=== PATIENT | male | born 1965 | race Two or more races ===

== ENCOUNTER 2018-08-30 09:02 | Inpatient (IN) | payer SELFPAY ==
[2018-08-30] MEDS ORDERED: Sodium Chloride 0.9% 1,000 ML IV ONE (09:40)
--- NOTE | 2018-08-30 09:46 | PCM.HP ---
H&P History of Present Illness - General Date of Service: 08/30/18 Admit Problem/Dx: Admission Diagnosis/Problem Admission Diagnosis/Problem UTI, Urinary tract infectious disease - History of Present Illness Initial Comments - Free Text/Narative: The patient is a 53 year old male who was a direct admit from his PCP, Khalida Turner. He reports 2 week history of flu like symptoms. He reports it started with URI symptoms such as cough, nasal congestion, and shortness of breath. That resolved and then he developed diarrhea. Last episode of diarrhea was 2 days ago. He reports fever intermittently, last known fever was Wednesday. The reports it was 102 F. He presented to his PCP, still not feeling great, where she did labs that showed a elevated white count of 15.5, elevated BUN/Cr of 35/2.2, elevated glucose of 355, bicarb of 22, sodium of 126, potassium of 4.8 and a UA with evidence of infection with positive leuk est, 4+ bacteria, and 20-30 WBC. Patient has a history of DMII, depression, and hyperlipidemia. He is only on oral agents for his diabetes and reports his H1ac was 12% about a month ago. He had been off his medications for about a month prior to that. Patient denies any history of CHF, kidney failure, UTI, asthma, or COPD. Currently the denies any fever/chills, chest pain, abdominal pain, nausea,vomiting, diarrhea, dsyuria, increased urgency or frequency. He does report feeling SOB. - Related Data Allergies/Adverse Reactions: Allergies Allergy/AdvReac Type Severity Reaction Status Date / Time No Known Allergies Allergy Verified 10/19/13 12:37 Home Medications: Home Meds Celecoxib 2 tab PO DAILY 09/03/15 [History] Citalopram Hydrobromide [Celexa] 60 mg PO DAILY 09/03/15 [History] Fenofibrate Nanocrystallized [Fenofibrate] 145 mg PO DAILY 09/03/15 [History] Insulin Aspart [Novolog Flexpen] 1 injection SUBCUT ASDIRECTED 09/03/15 [History ] Insulin Glarg,Human.Rec.Analog [LantUS Solostar] 50 units SUBCUT BID 09/03/15 [ History] Insulin Lispro [Humalog Kwikpen U-100] 20 - 25 units SUBCUT ASDIRECTED 09/03/15 [History] Krill/Om-3/DHA/EPA/Phospho/Ast [Krill Oil 1,000 mg Softgel] 1 tab PO DAILY 09/02 [History] Magnesium Oxide [Magnesium] 400 mg PO DAILY 09/03/15 [History] Multivitamin [Multivitamins] 1 tab PO DAILY 09/03/15 [History] atorvaSTATin Calcium [Atorvastatin Calcium] 80 mg PO BEDTIME 09/03/15 [History] buPROPion HCl [Wellbutrin SR] 300 mg PO DAILY 09/03/15 [History] sitaGLIPtin Phos/Metformin HCl [Janumet 50-500 MG] 2 tab PO DAILY 09/03/15 [ History] Cholecalciferol (Vitamin D3) [Vitamin D] 50,000 unit PO WEEKLY 08/30/18 [History ] Exenatide Microspheres [Bydureon Pen] 2 mg SQ WEEKLY 08/30/18 [History] Lisinopril 5 mg PO DAILY 08/30/18 [History] Rosuvastatin [Crestor] 20 mg PO DAILY 08/30/18 [History] Sertraline HCl [Zoloft] 100 mg PO BID 08/30/18 [History] Past Medical History HEENT History: Reports: None Cardiovascular History: Reports: High Cholesterol Respiratory History: Reports: Sleep Apnea Other Respiratory History: uses CPAP Gastrointestinal History: Reports: None Genitourinary History: Reports: None Neurological History: Reports: None Psychiatric History: Reports: Anxiety, Depression Endocrine/Metabolic History: Reports: Diabetes, Type II, Obesity/BMI 30+ Hematologic History: Reports: None Immunologic History: Reports: None Oncologic (Cancer) History: Reports: None Dermatologic History: Reports: None - Past Surgical History GI Surgical History: Reports: Bariatric Procedure Musculoskeletal Surgical History: Reports: Arthroscopic Knee Social & Family History - Tobacco Use Smoking Status *Q: Former Smoker - Alcohol Use Alcohol Use History: No H&P Review of Systems - Review of Systems: Review Of Systems: See Below General: Reports: No Symptoms HEENT: Reports: No Symptoms Pulmonary: Reports: Shortness of Breath. Denies: Cough Cardiovascular: Reports: No Symptoms Gastrointestinal: Reports: No Symptoms Genitourinary: Reports: No Symptoms Musculoskeletal: Reports: No Symptoms Skin: Reports: No Symptoms Psychiatric: Reports: No Symptoms Neurological: Reports: No Symptoms Hematologic/Lymphatic: Reports: No Symptoms Immunologic: Reports: No Symptoms Exam - Exam Exam: See Below - Vital Signs Vital Signs: Last Vital Signs Temp 96.7 F 08/30/18 09:14 Pulse 97 08/30/18 09:14 Resp 20 08/30/18 09:14 BP 96/58 L 08/30/18 09:14 Pulse Ox 97 08/30/18 09:14 Weight: 86.273 kg - Exam General: Alert, Oriented HEENT: EOMI, Posterior Pharynx Clear, Pupils Equal, Pupils Reactive, Other ( musoca dry) Neck: Supple, Trachea Midline Lungs: Clear to Auscultation, Normal Respiratory Effort Cardiovascular: Regular Rate, Regular Rhythm GI/Abdominal Exam: Normal Bowel Sounds, Soft, Non-Tender, No Distention Extremities: Normal Inspection, No Pedal Edema Skin: Warm, Dry, Intact Neuro Extensive - Mental Status: Alert, Oriented x3 Psychiatric: Alert, Normal Affect, Normal Mood Problem List Initiated/Reviewed/Updated: Yes Orders Last 24hrs: Active Orders 24 hr Category Date Time Status Patient Status [ADT] Routine ADT 08/30/18 09:41 Ordered Antiembolic Devices [RC] PER UNIT ROUTINE Care 08/30/18 09:43 Ordered Blood Glucose Check, Bedside [RC] TIDMEALS Care 08/30/18 09:45 Ordered Intake and Output Strict [RC] ASDIRECTED Care 08/30/18 09:42 Ordered Vital Signs [RC] PER UNIT ROUTINE Care 08/30/18 09:42 Ordered ADA Diabetic [[place] [employer] Diet] [DIET Diet 08/30/18 Lunch Ordered ] CULTURE BLOOD [BC] Stat Lab 08/30/18 09:36 Ordered CULTURE BLOOD [BC] Stat Lab 08/30/18 09:36 Ordered CULTURE URINE [RM] Routine Lab 08/30/18 09:37 Ordered LACTATE WITH REFLEX [BG] Stat Lab 08/30/18 09:36 Ordered Insulin Aspart [NovoLOG] Med 08/30/18 11:30 Ordered See Protocol SUBCUT TIDAC Sodium Chloride 0.9% @ 125 MLS/HR (1,000ml) Med 08/30/18 09:45 Ordered Sodium Chloride 0.9% [Normal Saline] 1,000 ml IV ASDIRECTED Sodium Chloride 0.9% @ Wide Open @ Dosing Amount 20 ML/ Med 08/30/18 09:40 Ordered KG (1,000ml) Sodium Chloride 0.9% [Normal Saline] 1,000 ml IV .BOLUS cefTRIAXone [Rocephin in Dextrose,Iso-Osm 1 GM/50 ML] 1 Med 08/30/18 09:45 Ordered gm Premix Bag 1 bag IV Q24H Blood Culture x2 Reflex Set [OM.PC] Stat Oth 08/30/18 09:36 Ordered Sequential Compression Device [OM.PC] Routine Oth 08/30/18 09:42 Ordered Resuscitation Status Routine Resus Stat 08/30/18 09:42 Ordered Medication Orders Sodium Chloride (Normal Saline) 1,000 mls @ 125 mls/hr IV ASDIRECTED IAN Sodium Chloride (Normal Saline) 1,000 mls @ 999 mls/hr IV .BOLUS ONE Stop: 08/30/18 10:40 Ceftriaxone Sodium/Dextrose 1 (gm/ Premix) 50 mls @ 100 mls/hr IV Q24H IAN Assessment/Plan Comment:: 1. Admit for observation 2. Code status- full 3. Vitals per routine 4. I/Os per routine 5. Diabetic diet 6. DVT with SCD 7. Sepsis secondary to UTI- He has hypotension, elevated WBC, source of infection, with organ damage to kidneys making him septic. Blood cultures and lactate ordered. Will look for other sources of infection with CXR and influenza swab. Will give 1 L bolus of normal saline then start maintenance fluids. Will start IV Rocephin. Urine culture pending. 8. MARCUS- hydrate with IVF 9. Uncontrolled DMII with hyperglycemia- will get a HA1c and place on sliding scale insulin and accuchecks. Likely patient will need long acting agent as well. We will see what his sugars are running throughout the day and possibly start something later tonight.
[2018-08-30 11:12] LABS: HEMOGLOBIN A1C 12.5 % (4.5-6.2)
[2018-08-30] MEDS: Insulin Aspart 100 Units/ML 3 ML Pen SUBCUT SCH ×2 (11:58→17:23)
[2018-08-30] MEDS: Sodium Chloride 0.9% 1,000 ML IV SCH ×2 (11:59→20:31)
--- NOTE | 2018-08-30 12:23 | CR ---
EXAMINATION: Two-view chest (PA and Lateral views). HISTORY: Shortness of breath. FINDINGS: The trachea is midline. The cardiomediastinal silhouette is within normal limits. No pulmonary infiltrates, effusions or pneumothorax. Mild interstitial prominence Osseous structures appear unremarkable. IMPRESSION: No acute cardiopulmonary process.
[2018-08-30] MEDS: cefTRIAXone 1 GM in Premix Bag 1 BAG IV SCH (13:09)
[2018-08-30] MEDS ORDERED: Ondansetron 4 MG/2 ML SDV IVPUSH PRN (18:34)
[2018-08-30] MEDS: Insulin Glargine,Human Rec. Analog 100 Units/ML 3 ML Pen SUBCUT SCH (21:23)
[2018-08-31] MEDS: Sodium Chloride 0.9% 1,000 ML IV SCH ×3 (04:36→21:18)
[2018-08-31] MEDS: Insulin Aspart 100 Units/ML 3 ML Pen SUBCUT SCH ×3 (07:40→17:27)
[2018-08-31] MEDS: Acetaminophen 325 MG Tab PO PRN ×2 (08:52→23:42)
[2018-08-31] MEDS: cefTRIAXone 1 GM in Premix Bag 1 BAG IV SCH (08:53)
--- NOTE | 2018-08-31 09:15 | PCM.PN ---
<Demetria Vásquez - Last Filed: 08/31/18 09:09> - General Info Date of Service: 08/31/18 Subjective Update: The patient is a 53 year old male admitted yesterday for sepsis secondary to UTI. Overnight blood cultures returned growing gram negative rods. Patient reports he feels much better. He denies any chest pain, shortness of breath, abdominal pain, nausea/vomiting. He is eating and drinking without issue. Max temp in the past 24 hours was 100.1 F - Review of Systems General: Reports: No Symptoms HEENT: Reports: No Symptoms Pulmonary: Reports: No Symptoms Cardiovascular: Reports: No Symptoms Gastrointestinal: Reports: No Symptoms Genitourinary: Reports: No Symptoms Musculoskeletal: Reports: No Symptoms Skin: Reports: No Symptoms Neurological: Reports: No Symptoms Psychiatric: Reports: No Symptoms - Patient Data Vitals - Most Recent: Last Vital Signs Temp 100.0 F 08/31/18 08:52 Pulse 77 08/31/18 07:16 Resp 16 08/31/18 07:16 BP 119/74 08/31/18 07:16 Pulse Ox 95 08/31/18 07:16 Weight - Most Recent: 86.273 kg I&O - Last 24 Hours: Intake & Output 08/30/18 08/31/18 08/31/18 22:59 06:59 14:59 Intake Total 2437 2773 Output Total 350 2050 Balance 2087 723 Lab Results Last 24 Hours: Laboratory Results - last 24 hr 08/30/18 08/30/18 08/30/18 Range/Units 10:10 10:10 11:16 WBC (4.0-11.0) K/uL RBC (4.50-5.90) M/uL Hgb (13.0-17.0) g/dL Hct (38.0-50.0) % MCV (80.0-98.0) fL MCH (27.0-32.0) pg MCHC (31.0-37.0) g/dL RDW Std Deviation (28.0-62.0) fl RDW Coeff of Jonathan (11.0-15.0) % Plt Count (150-400) K/uL MPV (7.40-12.00) fL Neut % (Auto) (48.0-80.0) % Lymph % (Auto) (16.0-40.0) % [place] % (Auto) (0.0-15.0) % Eos % (Auto) (0.0-7.0) % Baso % (Auto) (0.0-1.5) % Neut # (Auto) (1.4-5.7) K/uL Lymph # (Auto) (0.6-2.4) K/uL [place] # (Auto) (0.0-0.8) K/uL Eos # (Auto) (0.0-0.7) K/uL Baso # (Auto) (0.0-0.1) K/uL Nucleated RBC % /100WBC Nucleated RBCs # K/uL Lactate 1.1 (0.20-2.00) mmol/L Sodium (136-148) mmol/L Potassium (3.5-5.1) mmol/L Chloride (98-107) mmol/L Carbon Dioxide (21.0-32.0) mmol/L BUN (7.0-18.0) mg/dL Creatinine (0.8-1.3) mg/dL Est Cr Clr Drug Dosing mL/min Estimated GFR (MDRD) ml/min Glucose (74-106) mg/dL POC Glucose 312 H (60-110) mg/dL Hemoglobin A1c 12.5 H (4.5-6.2) % Calcium (8.5-10.1) mg/dL Total Bilirubin (0.2-1.0) mg/dL AST (15-37) IU/L ALT (14-63) IU/L Alkaline Phosphatase (46-116) U/L Total Protein (6.4-8.2) g/dL Albumin (3.4-5.0) g/dL Globulin (2.6-4.0) g/dL Albumin/Globulin Ratio (0.9-1.6) 08/30/18 08/30/18 08/31/18 Range/Units 16:43 21:12 05:00 WBC 15.04 H (4.0-11.0) K/uL RBC 3.89 L (4.50-5.90) M/uL Hgb 11.2 L (13.0-17.0) g/dL Hct 32.4 L (38.0-50.0) % MCV 83.3 (80.0-98.0) fL MCH 28.8 (27.0-32.0) pg MCHC 34.6 (31.0-37.0) g/dL RDW Std Deviation 36.7 (28.0-62.0) fl RDW Coeff of Jonathan 12 (11.0-15.0) % Plt Count 503 H (150-400) K/uL MPV 9.40 (7.40-12.00) fL Neut % (Auto) 82.3 H (48.0-80.0) % Lymph % (Auto) 10.4 L (16.0-40.0) % [place] % (Auto) 7.0 (0.0-15.0) % Eos % (Auto) 0.2 (0.0-7.0) % Baso % (Auto) 0.1 (0.0-1.5) % Neut # (Auto) 12.4 H (1.4-5.7) K/uL Lymph # (Auto) 1.6 (0.6-2.4) K/uL [place] # (Auto) 1.1 H (0.0-0.8) K/uL Eos # (Auto) 0.0 (0.0-0.7) K/uL Baso # (Auto) 0.0 (0.0-0.1) K/uL Nucleated RBC % 0.0 /100WBC Nucleated RBCs # 0 K/uL Lactate (0.20-2.00) mmol/L Sodium (136-148) mmol/L Potassium (3.5-5.1) mmol/L Chloride (98-107) mmol/L Carbon Dioxide (21.0-32.0) mmol/L BUN (7.0-18.0) mg/dL Creatinine (0.8-1.3) mg/dL Est Cr Clr Drug Dosing mL/min Estimated GFR (MDRD) ml/min Glucose (74-106) mg/dL POC Glucose 293 H 267 H (60-110) mg/dL Hemoglobin A1c (4.5-6.2) % Calcium (8.5-10.1) mg/dL Total Bilirubin (0.2-1.0) mg/dL AST (15-37) IU/L ALT (14-63) IU/L Alkaline Phosphatase (46-116) U/L Total Protein (6.4-8.2) g/dL Albumin (3.4-5.0) g/dL Globulin (2.6-4.0) g/dL Albumin/Globulin Ratio (0.9-1.6) 08/31/18 Range/Units 05:00 WBC (4.0-11.0) K/uL RBC (4.50-5.90) M/uL Hgb (13.0-17.0) g/dL Hct (38.0-50.0) % MCV (80.0-98.0) fL MCH (27.0-32.0) pg MCHC (31.0-37.0) g/dL RDW Std Deviation (28.0-62.0) fl RDW Coeff of Jonathan (11.0-15.0) % Plt Count (150-400) K/uL MPV (7.40-12.00) fL Neut % (Auto) (48.0-80.0) % Lymph % (Auto) (16.0-40.0) % [place] % (Auto) (0.0-15.0) % Eos % (Auto) (0.0-7.0) % Baso % (Auto) (0.0-1.5) % Neut # (Auto) (1.4-5.7) K/uL Lymph # (Auto) (0.6-2.4) K/uL [place] # (Auto) (0.0-0.8) K/uL Eos # (Auto) (0.0-0.7) K/uL Baso # (Auto) (0.0-0.1) K/uL Nucleated RBC % /100WBC Nucleated RBCs # K/uL Lactate (0.20-2.00) mmol/L Sodium 132 L (136-148) mmol/L Potassium 4.7 (3.5-5.1) mmol/L Chloride 97 L (98-107) mmol/L Carbon Dioxide 23.0 (21.0-32.0) mmol/L BUN 30 H (7.0-18.0) mg/dL Creatinine 2.1 H (0.8-1.3) mg/dL Est Cr Clr Drug Dosing 42.00 mL/min Estimated GFR (MDRD) 33.2 ml/min Glucose 267 H (74-106) mg/dL POC Glucose (60-110) mg/dL Hemoglobin A1c (4.5-6.2) % Calcium 8.8 (8.5-10.1) mg/dL Total Bilirubin 0.4 (0.2-1.0) mg/dL AST 37 (15-37) IU/L ALT 69 H (14-63) IU/L Alkaline Phosphatase 91 (46-116) U/L Total Protein 7.3 (6.4-8.2) g/dL Albumin 2.3 L (3.4-5.0) g/dL Globulin 5.0 H (2.6-4.0) g/dL Albumin/Globulin Ratio 0.5 L (0.9-1.6) Kobi Results Last 24 Hours: Microbiology 08/30/18 10:10 Anaerobic Blood Culture - Preliminary Blood - Venous 08/30/18 10:22 Anaerobic Blood Culture - Preliminary Blood - Venous - Lab Draw 08/30/18 11:15 Influenza Type A Antigen Screen - Final Nasopharyngeal Swab NEGATIVE INFLUENZA A VIRUS AG Influenza Type B Antigen Screen - Final NEGATIVE INFLUENZA B VIRUS AG Med Orders - Current: Current Medications Acetaminophen (Tylenol) 650 mg PO Q4H PRN PRN Reason: Pain/Fever Last Admin: 08/31/18 08:52 Dose: 650 mg Sodium Chloride (Normal Saline) 1,000 mls @ 125 mls/hr IV ASDIRECTED [facility] Last Admin: 08/31/18 04:36 Dose: 125 mls/hr Ceftriaxone Sodium/Dextrose 1 (gm/ Premix) 50 mls @ 100 mls/hr IV Q24H IAN Last Admin: 08/31/18 08:53 Dose: 100 mls/hr Insulin Aspart (Novolog) 0 unit SUBCUT TIDAC [facility]; Protocol Last Admin: 08/31/18 07:40 Dose: 4 units Insulin Glargine (Lantus Solostar) 20 units SUBCUT BEDTIME [facility] Last Admin: 08/30/18 21:23 Dose: 20 units Ondansetron HCl (Zofran) 4 mg IVPUSH Q4H PRN PRN Reason: Nausea/Vomiting Discontinued Medications Sodium Chloride (Normal Saline) 1,000 mls @ 999 mls/hr IV .BOLUS ONE Stop: 08/30/18 10:40 Last Admin: 08/30/18 10:33 Dose: 999 mls/hr - Exam General: Alert, Oriented, Cooperative HEENT: Pupils Equal, Pupils Reactive Lungs: Clear to Auscultation, Normal Respiratory Effort Cardiovascular: Regular Rate, Regular Rhythm GI/Abdominal Exam: Normal Bowel Sounds, Soft, Non-Tender, No Distention Extremities: No Pedal Edema Skin: Warm, Dry Neurological: No New Focal Deficit Psy/Mental Status: Alert, Normal Affect, Normal Mood - Problem List & Annotations (1) Sepsis due to gram-negative UTI SNOMED Code(s): 163720782 Code(s): A41.50 - GRAM-NEGATIVE SEPSIS, UNSPECIFIED; N39.0 - URINARY TRACT INFECTION, SITE NOT SPECIFIED Status: Acute Current Visit: Yes (2) Gram-negative bacteremia SNOMED Code(s): 998669114158 Code(s): R78.81 - BACTEREMIA Status: Acute Current Visit: Yes (3) MARCUS (acute kidney injury) SNOMED Code(s): 55157378 Code(s): N17.9 - ACUTE KIDNEY FAILURE, UNSPECIFIED Status: Acute Current Visit: Yes (4) Uncontrolled diabetes mellitus SNOMED Code(s): 29239827, 608482154 Code(s): E11.65 - TYPE 2 DIABETES MELLITUS WITH HYPERGLYCEMIA Status: Acute Current Visit: Yes - Problem List Review Problem List Initiated/Reviewed/Updated: Yes - My Orders Last 24 Hours: My Active Orders 08/30/18 09:36 Blood Culture x2 Reflex Set [OM.PC] Stat 08/30/18 09:41 Patient Status [ADT] Routine 08/30/18 09:42 Intake and Output Strict [RC] Q12H Vital Signs [RC] Q4H Sequential Compression Device [OM.PC] Routine Resuscitation Status Routine 08/30/18 09:43 Antiembolic Devices [RC] PER UNIT ROUTINE 08/30/18 09:45 Blood Glucose Check, Bedside [RC] TIDMEALS Sodium Chloride 0.9% [Normal Saline] 1,000 ml IV ASDIRECTED cefTRIAXone [Rocephin in Dextrose,Iso-Osm 1 GM/50 ML] 1 gm Premix Bag 1 bag IV Q24H 08/30/18 10:10 CULTURE BLOOD [BC] Stat 08/30/18 10:22 CULTURE BLOOD [BC] Stat 08/30/18 11:30 Insulin Aspart [NovoLOG] See Protocol SUBCUT TIDAC 08/30/18 11:43 Consult to Diabetic Nurse Specialist [CONS] Routine 08/30/18 13:10 CULTURE URINE [RM] Routine 08/30/18 18:33 Acetaminophen [Tylenol] 650 mg PO Q4H PRN 08/30/18 18:34 Ondansetron [Zofran] 4 mg IVPUSH Q4H PRN 08/30/18 21:00 Insulin Glarg,Human.Rec.Analog [LantUS Solostar] 20 units SUBCUT BEDTIME 08/30/18 Lunch ADA Diabetic [[place] [employer] Diet] [DIET] - Plan Plan:: 1. Sepsis secondary to UTI with gram negative bacteremia- BC growing gram negative rods. Continue IV Rocephin. Continue IVF. The team spoke to his PCP provider did the intial workup reported that his urine culture is growing gram negative rods as well. 2. MARCUS- slight improvement- continue IVF 3. Uncontrolled DMII with hyperglycemia- continue on Lantus 20 at bedtime and sliding scale with meals. DNE met with him yesterday and established that he will have to go home on insulin. <Ruperto Larson - Last Filed: 08/31/18 18:00> - General Info Subjective Update: I have examined the patient independently of Demetria Vásquez MD, resident. I have discussed the case with her. Patient feels better today. I have reviewed and agree with the plan of care as outlined by her. Please see orders. - Patient Data Vitals - Most Recent: Last Vital Signs Temp 36.6 C 08/31/18 15:00 Pulse 77 08/31/18 15:00 Resp 18 08/31/18 15:00 BP 119/73 08/31/18 15:00 Pulse Ox 95 08/31/18 15:00 I&O - Last 24 Hours: Intake & Output 08/31/18 08/31/18 08/31/18 06:59 14:59 22:59 Intake Total 2773 2845 Output Total 2050 2330 Balance 723 515 Lab Results Last 24 Hours: Laboratory Results - last 24 hr 08/30/18 08/31/18 08/31/18 Range/Units 21:12 05:00 05:00 WBC 15.04 H (4.0-11.0) K/uL RBC 3.89 L (4.50-5.90) M/uL Hgb 11.2 L (13.0-17.0) g/dL Hct 32.4 L (38.0-50.0) % MCV 83.3 (80.0-98.0) fL MCH 28.8 (27.0-32.0) pg MCHC 34.6 (31.0-37.0) g/dL RDW Std Deviation 36.7 (28.0-62.0) fl RDW Coeff of Jonathan 12 (11.0-15.0) % Plt Count 503 H (150-400) K/uL MPV 9.40 (7.40-12.00) fL Neut % (Auto) 82.3 H (48.0-80.0) % Lymph % (Auto) 10.4 L (16.0-40.0) % [place] % (Auto) 7.0 (0.0-15.0) % Eos % (Auto) 0.2 (0.0-7.0) % Baso % (Auto) 0.1 (0.0-1.5) % Neut # (Auto) 12.4 H (1.4-5.7) K/uL Lymph # (Auto) 1.6 (0.6-2.4) K/uL [place] # (Auto) 1.1 H (0.0-0.8) K/uL Eos # (Auto) 0.0 (0.0-0.7) K/uL Baso # (Auto) 0.0 (0.0-0.1) K/uL Nucleated RBC % 0.0 /100WBC Nucleated RBCs # 0 K/uL Sodium 132 L (136-148) mmol/L Potassium 4.7 (3.5-5.1) mmol/L Chloride 97 L (98-107) mmol/L Carbon Dioxide 23.0 (21.0-32.0) mmol/L BUN 30 H (7.0-18.0) mg/dL Creatinine 2.1 H (0.8-1.3) mg/dL Est Cr Clr Drug Dosing 42.00 mL/min Estimated GFR (MDRD) 33.2 ml/min Glucose 267 H (74-106) mg/dL POC Glucose 267 H (60-110) mg/dL Calcium 8.8 (8.5-10.1) mg/dL Total Bilirubin 0.4 (0.2-1.0) mg/dL AST 37 (15-37) IU/L ALT 69 H (14-63) IU/L Alkaline Phosphatase 91 (46-116) U/L Total Protein 7.3 (6.4-8.2) g/dL Albumin 2.3 L (3.4-5.0) g/dL Globulin 5.0 H (2.6-4.0) g/dL Albumin/Globulin Ratio 0.5 L (0.9-1.6) 08/31/18 08/31/18 08/31/18 Range/Units 06:28 11:42 16:01 WBC (4.0-11.0) K/uL RBC (4.50-5.90) M/uL Hgb (13.0-17.0) g/dL Hct (38.0-50.0) % MCV (80.0-98.0) fL MCH (27.0-32.0) pg MCHC (31.0-37.0) g/dL RDW Std Deviation (28.0-62.0) fl RDW Coeff of Jonathan (11.0-15.0) % Plt Count (150-400) K/uL MPV (7.40-12.00) fL Neut % (Auto) (48.0-80.0) % Lymph % (Auto) (16.0-40.0) % [place] % (Auto) (0.0-15.0) % Eos % (Auto) (0.0-7.0) % Baso % (Auto) (0.0-1.5) % Neut # (Auto) (1.4-5.7) K/uL Lymph # (Auto) (0.6-2.4) K/uL [place] # (Auto) (0.0-0.8) K/uL Eos # (Auto) (0.0-0.7) K/uL Baso # (Auto) (0.0-0.1) K/uL Nucleated RBC % /100WBC Nucleated RBCs # K/uL Sodium (136-148) mmol/L Potassium (3.5-5.1) mmol/L Chloride (98-107) mmol/L Carbon Dioxide (21.0-32.0) mmol/L BUN (7.0-18.0) mg/dL Creatinine (0.8-1.3) mg/dL Est Cr Clr Drug Dosing mL/min Estimated GFR (MDRD) ml/min Glucose (74-106) mg/dL POC Glucose 240 H 271 H 315 H (60-110) mg/dL Calcium (8.5-10.1) mg/dL Total Bilirubin (0.2-1.0) mg/dL AST (15-37) IU/L ALT (14-63) IU/L Alkaline Phosphatase (46-116) U/L Total Protein (6.4-8.2) g/dL Albumin (3.4-5.0) g/dL Globulin (2.6-4.0) g/dL Albumin/Globulin Ratio (0.9-1.6) Kobi Results Last 24 Hours: Microbiology 08/30/18 10:10 Aerobic Blood Culture - Preliminary Blood - Venous NO GROWTH AFTER 1 DAY Anaerobic Blood Culture - Preliminary 08/30/18 10:22 Aerobic Blood Culture - Preliminary Blood - Venous - Lab Draw NO GROWTH AFTER 1 DAY Anaerobic Blood Culture - Preliminary Med Orders - Current: Current Medications Acetaminophen (Tylenol) 650 mg PO Q4H PRN PRN Reason: Pain/Fever Last Admin: 08/31/18 08:52 Dose: 650 mg Sodium Chloride (Normal Saline) 1,000 mls @ 125 mls/hr IV ASDIRECTED [facility] Last Admin: 08/31/18 13:16 Dose: 125 mls/hr Ceftriaxone Sodium/Dextrose 1 (gm/ Premix) 50 mls @ 100 mls/hr IV Q24H [facility] Last Admin: 08/31/18 08:53 Dose: 100 mls/hr Insulin Aspart (Novolog) 0 unit SUBCUT TIDAC [facility]; Protocol Last Admin: 08/31/18 17:27 Dose: 8 units Insulin Glargine (Lantus Solostar) 20 units SUBCUT BEDTIME [facility] Last Admin: 08/30/18 21:23 Dose: 20 units Ondansetron HCl (Zofran) 4 mg IVPUSH Q4H PRN PRN Reason: Nausea/Vomiting Discontinued Medications Sodium Chloride (Normal Saline) 1,000 mls @ 999 mls/hr IV .BOLUS ONE Stop: 08/30/18 10:40 Last Admin: 08/30/18 10:33 Dose: 999 mls/hr
[2018-08-31] MEDS: Insulin Glargine,Human Rec. Analog 100 Units/ML 3 ML Pen SUBCUT SCH (21:19)
[2018-09-01] MEDS: Sodium Chloride 0.9% 1,000 ML IV SCH ×2 (05:03→17:37)
[2018-09-01] MEDS: Insulin Aspart 100 Units/ML 3 ML Pen SUBCUT SCH ×3 (07:55→17:34)
--- NOTE | 2018-09-01 09:00 | PCM.PN ---
<Demetria Vásquez - Last Filed: 09/01/18 08:45> - General Info Date of Service: 09/01/18 Subjective Update: The patient reports he is feeling better. His appetite has returned. He denies chest pain, shortness of breath, or abdominal pain. He did spike a temperature of 102.1F last night. - Review of Systems General: Reports: Fever HEENT: Reports: No Symptoms Pulmonary: Reports: No Symptoms Cardiovascular: Reports: No Symptoms Gastrointestinal: Reports: No Symptoms Genitourinary: Reports: No Symptoms Musculoskeletal: Reports: No Symptoms Skin: Reports: No Symptoms Neurological: Reports: No Symptoms Psychiatric: Reports: No Symptoms - Patient Data Vitals - Most Recent: Last Vital Signs Temp 98.4 F 09/01/18 04:00 Pulse 65 09/01/18 04:00 Resp 16 09/01/18 04:00 BP 110/68 09/01/18 04:00 Pulse Ox 95 09/01/18 04:00 Weight - Most Recent: 86.273 kg I&O - Last 24 Hours: Intake & Output 08/31/18 09/01/18 09/01/18 22:59 06:59 14:59 Intake Total 2845 2080 Output Total 2330 1700 Balance 515 380 Lab Results Last 24 Hours: Laboratory Results - last 24 hr 08/31/18 08/31/18 08/31/18 Range/Units 06:28 11:42 16:01 WBC (4.0-11.0) K/uL RBC (4.50-5.90) M/uL Hgb (13.0-17.0) g/dL Hct (38.0-50.0) % MCV (80.0-98.0) fL MCH (27.0-32.0) pg MCHC (31.0-37.0) g/dL RDW Std Deviation (28.0-62.0) fl RDW Coeff of Jonathan (11.0-15.0) % Plt Count (150-400) K/uL MPV (7.40-12.00) fL Neut % (Auto) (48.0-80.0) % Lymph % (Auto) (16.0-40.0) % Hutchinson % (Auto) (0.0-15.0) % Eos % (Auto) (0.0-7.0) % Baso % (Auto) (0.0-1.5) % Neut # (Auto) (1.4-5.7) K/uL Lymph # (Auto) (0.6-2.4) K/uL Hutchinson # (Auto) (0.0-0.8) K/uL Eos # (Auto) (0.0-0.7) K/uL Baso # (Auto) (0.0-0.1) K/uL Nucleated RBC % /100WBC Nucleated RBCs # K/uL Sodium (136-148) mmol/L Potassium (3.5-5.1) mmol/L Chloride (98-107) mmol/L Carbon Dioxide (21.0-32.0) mmol/L BUN (7.0-18.0) mg/dL Creatinine (0.8-1.3) mg/dL Est Cr Clr Drug Dosing mL/min Estimated GFR (MDRD) ml/min Glucose (74-106) mg/dL POC Glucose 240 H 271 H 315 H (60-110) mg/dL Calcium (8.5-10.1) mg/dL 08/31/18 09/01/18 09/01/18 Range/Units 21:13 05:25 05:25 WBC 13.91 H (4.0-11.0) K/uL RBC 3.69 L (4.50-5.90) M/uL Hgb 10.6 L (13.0-17.0) g/dL Hct 30.9 L (38.0-50.0) % MCV 83.7 (80.0-98.0) fL MCH 28.7 (27.0-32.0) pg MCHC 34.3 (31.0-37.0) g/dL RDW Std Deviation 36.9 (28.0-62.0) fl RDW Coeff of Jonathan 12 (11.0-15.0) % Plt Count 490 H (150-400) K/uL MPV 9.30 (7.40-12.00) fL Neut % (Auto) 79.3 (48.0-80.0) % Lymph % (Auto) 13.6 L (16.0-40.0) % Hutchinson % (Auto) 6.6 (0.0-15.0) % Eos % (Auto) 0.4 (0.0-7.0) % Baso % (Auto) 0.1 (0.0-1.5) % Neut # (Auto) 11.0 H (1.4-5.7) K/uL Lymph # (Auto) 1.9 (0.6-2.4) K/uL Hutchinson # (Auto) 0.9 H (0.0-0.8) K/uL Eos # (Auto) 0.1 (0.0-0.7) K/uL Baso # (Auto) 0.0 (0.0-0.1) K/uL Nucleated RBC % 0.0 /100WBC Nucleated RBCs # 0 K/uL Sodium 133 L (136-148) mmol/L Potassium 4.2 (3.5-5.1) mmol/L Chloride 100 (98-107) mmol/L Carbon Dioxide 24.7 (21.0-32.0) mmol/L BUN 22 H (7.0-18.0) mg/dL Creatinine 1.8 H (0.8-1.3) mg/dL Est Cr Clr Drug Dosing 49.00 mL/min Estimated GFR (MDRD) 39.7 ml/min Glucose 234 H (74-106) mg/dL POC Glucose 259 H (60-110) mg/dL Calcium 8.8 (8.5-10.1) mg/dL Kobi Results Last 24 Hours: Microbiology 08/30/18 13:10 Urine Culture - Final Urine, Bladder Enterobacter Aerogenes 08/30/18 10:10 Aerobic Blood Culture - Preliminary Blood - Venous NO GROWTH AFTER 1 DAY Anaerobic Blood Culture - Preliminary 08/30/18 10:22 Aerobic Blood Culture - Preliminary Blood - Venous - Lab Draw NO GROWTH AFTER 1 DAY Anaerobic Blood Culture - Preliminary Med Orders - Current: Current Medications Acetaminophen (Tylenol) 650 mg PO Q4H PRN PRN Reason: Pain/Fever Last Admin: 08/31/18 23:42 Dose: 650 mg Sodium Chloride (Normal Saline) 1,000 mls @ 125 mls/hr IV ASDIRECTED [facility] Last Admin: 09/01/18 05:03 Dose: 125 mls/hr Ceftriaxone Sodium/Dextrose 1 (gm/ Premix) 50 mls @ 100 mls/hr IV Q24H [facility] Last Admin: 08/31/18 08:53 Dose: 100 mls/hr Insulin Aspart (Novolog) 0 unit SUBCUT TIDAC IAN; Protocol Last Admin: 09/01/18 07:55 Dose: 6 units Insulin Glargine (Lantus Solostar) 20 units SUBCUT BEDTIME [facility] Last Admin: 08/31/18 21:19 Dose: 20 units Ondansetron HCl (Zofran) 4 mg IVPUSH Q4H PRN PRN Reason: Nausea/Vomiting Discontinued Medications Sodium Chloride (Normal Saline) 1,000 mls @ 999 mls/hr IV .BOLUS ONE Stop: 08/30/18 10:40 Last Admin: 08/30/18 10:33 Dose: 999 mls/hr - Exam General: Alert, Oriented, Cooperative HEENT: Pupils Equal, Pupils Reactive, EOMI, Mucous Membr. Moist/[place] Neck: Supple Lungs: Clear to Auscultation, Normal Respiratory Effort Cardiovascular: Regular Rate, Regular Rhythm GI/Abdominal Exam: Normal Bowel Sounds, Soft, Non-Tender, No Distention Extremities: No Pedal Edema Skin: Warm, Dry Neurological: No New Focal Deficit Psy/Mental Status: Alert, Normal Affect, Normal Mood - Problem List & Annotations (1) Sepsis due to gram-negative UTI SNOMED Code(s): 394500838 Code(s): A41.50 - GRAM-NEGATIVE SEPSIS, UNSPECIFIED; N39.0 - URINARY TRACT INFECTION, SITE NOT SPECIFIED Status: Acute Current Visit: Yes (2) Gram-negative bacteremia SNOMED Code(s): 012109777424 Code(s): R78.81 - BACTEREMIA Status: Acute Current Visit: Yes (3) MARCUS (acute kidney injury) SNOMED Code(s): 09848986 Code(s): N17.9 - ACUTE KIDNEY FAILURE, UNSPECIFIED Status: Acute Current Visit: Yes (4) Uncontrolled diabetes mellitus SNOMED Code(s): 51874420, 414154863 Code(s): E11.65 - TYPE 2 DIABETES MELLITUS WITH HYPERGLYCEMIA Status: Acute Current Visit: Yes (5) Infection due to Enterobacter aerogenes SNOMED Code(s): 227916475, 972373375 Code(s): A49.8 - OTHER BACTERIAL INFECTIONS OF UNSPECIFIED SITE Status: Acute Current Visit: Yes - Problem List Review Problem List Initiated/Reviewed/Updated: Yes - My Orders Last 24 Hours: My Active Orders 08/31/18 09:37 Patient Status [ADT] Routine - Plan Plan:: 1. Sepsis secondary to UTI with gram negative bacteremia- BC growing gram negative rods. Urine culture growing Enterobacter aerogenes. Will switch IV antibiotics to Levaquin renally dosed so every 48 hours. Will repeat blood cultures to see if he has cleared the infection. Continue IVF. 2. MARCUS- improving, Cr down from 2.1 to 1.8- continue IVF 3. Uncontrolled DMII with hyperglycemia- continue on Lantus 20 at bedtime and sliding scale with meals. 4. Chronic conditions- depression and hyperlipidemia- continue home meds <MarshaRuperto redding - Last Filed: 09/01/18 09:58> - General Info Admission Dx/Problem (Free Text): I have seen and examined the patient independently of medical records analyst, Demetria Vásquez MD. I have discussed the case with her. I have reviewed and agree with the assessment and plan of care for the patient as outlined by her. Please see orders. Overall, better today. Abx changed due C&S report. Renally dosed Levaquin. - Patient Data Vitals - Most Recent: Last Vital Signs Temp 36.9 C 09/01/18 04:00 Pulse 65 09/01/18 04:00 Resp 16 09/01/18 04:00 BP 110/68 09/01/18 04:00 Pulse Ox 95 09/01/18 04:00 I&O - Last 24 Hours: Intake & Output 08/31/18 09/01/18 09/01/18 22:59 06:59 14:59 Intake Total 2845 2080 Output Total 2330 1700 Balance 515 380 Lab Results Last 24 Hours: Laboratory Results - last 24 hr 08/31/18 08/31/18 08/31/18 Range/Units 06:28 11:42 16:01 WBC (4.0-11.0) K/uL RBC (4.50-5.90) M/uL Hgb (13.0-17.0) g/dL Hct (38.0-50.0) % MCV (80.0-98.0) fL MCH (27.0-32.0) pg MCHC (31.0-37.0) g/dL RDW Std Deviation (28.0-62.0) fl RDW Coeff of Jonathan (11.0-15.0) % Plt Count (150-400) K/uL MPV (7.40-12.00) fL Neut % (Auto) (48.0-80.0) % Lymph % (Auto) (16.0-40.0) % Hutchinson % (Auto) (0.0-15.0) % Eos % (Auto) (0.0-7.0) % Baso % (Auto) (0.0-1.5) % Neut # (Auto) (1.4-5.7) K/uL Lymph # (Auto) (0.6-2.4) K/uL Hutchinson # (Auto) (0.0-0.8) K/uL Eos # (Auto) (0.0-0.7) K/uL Baso # (Auto) (0.0-0.1) K/uL Nucleated RBC % /100WBC Nucleated RBCs # K/uL Sodium (136-148) mmol/L Potassium (3.5-5.1) mmol/L Chloride (98-107) mmol/L Carbon Dioxide (21.0-32.0) mmol/L BUN (7.0-18.0) mg/dL Creatinine (0.8-1.3) mg/dL Est Cr Clr Drug Dosing mL/min Estimated GFR (MDRD) ml/min Glucose (74-106) mg/dL POC Glucose 240 H 271 H 315 H (60-110) mg/dL Calcium (8.5-10.1) mg/dL 08/31/18 09/01/18 09/01/18 Range/Units 21:13 05:25 05:25 WBC 13.91 H (4.0-11.0) K/uL RBC 3.69 L (4.50-5.90) M/uL Hgb 10.6 L (13.0-17.0) g/dL Hct 30.9 L (38.0-50.0) % MCV 83.7 (80.0-98.0) fL MCH 28.7 (27.0-32.0) pg MCHC 34.3 (31.0-37.0) g/dL RDW Std Deviation 36.9 (28.0-62.0) fl RDW Coeff of Jonathan 12 (11.0-15.0) % Plt Count 490 H (150-400) K/uL MPV 9.30 (7.40-12.00) fL Neut % (Auto) 79.3 (48.0-80.0) % Lymph % (Auto) 13.6 L (16.0-40.0) % Hutchinson % (Auto) 6.6 (0.0-15.0) % Eos % (Auto) 0.4 (0.0-7.0) % Baso % (Auto) 0.1 (0.0-1.5) % Neut # (Auto) 11.0 H (1.4-5.7) K/uL Lymph # (Auto) 1.9 (0.6-2.4) K/uL Hutchinson # (Auto) 0.9 H (0.0-0.8) K/uL Eos # (Auto) 0.1 (0.0-0.7) K/uL Baso # (Auto) 0.0 (0.0-0.1) K/uL Nucleated RBC % 0.0 /100WBC Nucleated RBCs # 0 K/uL Sodium 133 L (136-148) mmol/L Potassium 4.2 (3.5-5.1) mmol/L Chloride 100 (98-107) mmol/L Carbon Dioxide 24.7 (21.0-32.0) mmol/L BUN 22 H (7.0-18.0) mg/dL Creatinine 1.8 H (0.8-1.3) mg/dL Est Cr Clr Drug Dosing 49.00 mL/min Estimated GFR (MDRD) 39.7 ml/min Glucose 234 H (74-106) mg/dL POC Glucose 259 H (60-110) mg/dL Calcium 8.8 (8.5-10.1) mg/dL Kobi Results Last 24 Hours: Microbiology 08/30/18 13:10 Urine Culture - Final Urine, Bladder Enterobacter Aerogenes 08/30/18 10:10 Aerobic Blood Culture - Preliminary Blood - Venous NO GROWTH AFTER 1 DAY Anaerobic Blood Culture - Preliminary 08/30/18 10:22 Aerobic Blood Culture - Preliminary Blood - Venous - Lab Draw NO GROWTH AFTER 1 DAY Anaerobic Blood Culture - Preliminary Med Orders - Current: Current Medications Acetaminophen (Tylenol) 650 mg PO Q4H PRN PRN Reason: Pain/Fever Last Admin: 08/31/18 23:42 Dose: 650 mg Bupropion HCl (Wellbutrin Sr) 300 mg PO DAILY [facility] Last Admin: 09/01/18 09:53 Dose: 300 mg Sodium Chloride (Normal Saline) 1,000 mls @ 125 mls/hr IV ASDIRECTED [facility] Last Admin: 09/01/18 05:03 Dose: 125 mls/hr Levofloxacin/Dextrose 750 mg/ (Premix) 150 mls @ 100 mls/hr IV Q48H [facility] Last Admin: 09/01/18 09:48 Dose: 100 mls/hr Insulin Aspart (Novolog) 0 unit SUBCUT TIDAC [facility]; Protocol Last Admin: 09/01/18 07:55 Dose: 6 units Insulin Glargine (Lantus Solostar) 20 units SUBCUT BEDTIME [facility] Last Admin: 08/31/18 21:19 Dose: 20 units Multivitamins/Minerals/Vitamin C (Tab-A-Zaheer) 1 tab PO DAILY [facility] Ondansetron HCl (Zofran) 4 mg IVPUSH Q4H PRN PRN Reason: Nausea/Vomiting Rosuvastatin Calcium (Crestor) 20 mg PO DAILY [facility] Last Admin: 09/01/18 09:52 Dose: 20 mg Sertraline HCl (Zoloft) 100 mg PO BID [facility] Last Admin: 09/01/18 09:53 Dose: 100 mg Discontinued Medications Sodium Chloride (Normal Saline) 1,000 mls @ 999 mls/hr IV .BOLUS ONE Stop: 08/30/18 10:40 Last Admin: 08/30/18 10:33 Dose: 999 mls/hr Ceftriaxone Sodium/Dextrose 1 (gm/ Premix) 50 mls @ 100 mls/hr IV Q24H [facility] Last Admin: 08/31/18 08:53 Dose: 100 mls/hr
[2018-09-01] MEDS: Levofloxacin/Dextrose 5%-Water 750 MG in Premix Bag 1 BAG IV SCH (09:48)
[2018-09-01] MEDS: Rosuvastatin 10 MG Tab PO SCH (09:52)
[2018-09-01] MEDS: Sertraline 100 MG Tab PO SCH ×2 (09:53→21:44)
[2018-09-01] MEDS: buPROPion 150 MG Tab.SR PO SCH (09:53)
[2018-09-01] MEDS: Multivitamin Tab PO SCH (10:06)
[2018-09-01] MEDS: Insulin Glargine,Human Rec. Analog 100 Units/ML 3 ML Pen SUBCUT SCH (21:42)
[2018-09-02] MEDS: Sodium Chloride 0.9% 1,000 ML IV SCH ×2 (01:33→16:48)
[2018-09-02] MEDS: Acetaminophen 325 MG Tab PO PRN ×2 (03:59→14:54)
[2018-09-02] MEDS: Insulin Aspart 100 Units/ML 3 ML Pen SUBCUT SCH ×3 (07:31→16:50)
--- NOTE | 2018-09-02 08:39 | PCM.PN ---
<Demetria Vásquez - Last Filed: 09/02/18 08:34> - General Info Date of Service: 09/02/18 Subjective Update: Patient reports he doesn't feel as well as yesterday. He denies chest pain, shortness of breath, or abdominal pain. He did spike a fever of 102.2 last night that resolved with Tylenol. - Review of Systems General: Reports: Fever HEENT: Reports: No Symptoms Pulmonary: Reports: No Symptoms Cardiovascular: Reports: No Symptoms Gastrointestinal: Reports: No Symptoms Genitourinary: Reports: No Symptoms Musculoskeletal: Reports: No Symptoms Skin: Reports: No Symptoms Neurological: Reports: No Symptoms Psychiatric: Reports: No Symptoms - Patient Data Vitals - Most Recent: Last Vital Signs Temp 99.9 F 09/02/18 05:04 Pulse 85 09/02/18 04:00 Resp 18 09/02/18 04:00 BP 125/67 09/02/18 04:00 Pulse Ox 95 09/02/18 04:00 Weight - Most Recent: 86.273 kg I&O - Last 24 Hours: Intake & Output 09/01/18 09/02/18 09/02/18 22:59 06:59 14:59 Intake Total 3375 2000 Output Total 2000 2100 Balance 1375 -100 Lab Results Last 24 Hours: Laboratory Results - last 24 hr 09/01/18 09/01/18 09/01/18 Range/Units 06:29 11:23 16:06 WBC (4.0-11.0) K/uL RBC (4.50-5.90) M/uL Hgb (13.0-17.0) g/dL Hct (38.0-50.0) % MCV (80.0-98.0) fL MCH (27.0-32.0) pg MCHC (31.0-37.0) g/dL RDW Std Deviation (28.0-62.0) fl RDW Coeff of Jonathan (11.0-15.0) % Plt Count (150-400) K/uL MPV (7.40-12.00) fL Neut % (Auto) (48.0-80.0) % Lymph % (Auto) (16.0-40.0) % Dillon % (Auto) (0.0-15.0) % Eos % (Auto) (0.0-7.0) % Baso % (Auto) (0.0-1.5) % Neut # (Auto) (1.4-5.7) K/uL Lymph # (Auto) (0.6-2.4) K/uL Dillon # (Auto) (0.0-0.8) K/uL Eos # (Auto) (0.0-0.7) K/uL Baso # (Auto) (0.0-0.1) K/uL Nucleated RBC % /100WBC Nucleated RBCs # K/uL Sodium (136-148) mmol/L Potassium (3.5-5.1) mmol/L Chloride (98-107) mmol/L Carbon Dioxide (21.0-32.0) mmol/L BUN (7.0-18.0) mg/dL Creatinine (0.8-1.3) mg/dL Est Cr Clr Drug Dosing mL/min Estimated GFR (MDRD) ml/min Glucose (74-106) mg/dL POC Glucose 265 H 281 H 258 H (60-110) mg/dL Calcium (8.5-10.1) mg/dL 09/01/18 09/02/18 09/02/18 Range/Units 21:11 05:13 05:13 WBC 14.77 H (4.0-11.0) K/uL RBC 3.63 L (4.50-5.90) M/uL Hgb 10.6 L (13.0-17.0) g/dL Hct 29.9 L (38.0-50.0) % MCV 82.4 (80.0-98.0) fL MCH 29.2 (27.0-32.0) pg MCHC 35.5 (31.0-37.0) g/dL RDW Std Deviation 36.0 (28.0-62.0) fl RDW Coeff of Jonathan 12 (11.0-15.0) % Plt Count 464 H (150-400) K/uL MPV 8.90 (7.40-12.00) fL Neut % (Auto) 87.1 H (48.0-80.0) % Lymph % (Auto) 7.0 L (16.0-40.0) % Dillon % (Auto) 5.6 (0.0-15.0) % Eos % (Auto) 0.2 (0.0-7.0) % Baso % (Auto) 0.1 (0.0-1.5) % Neut # (Auto) 12.9 H (1.4-5.7) K/uL Lymph # (Auto) 1.0 (0.6-2.4) K/uL Dillon # (Auto) 0.8 (0.0-0.8) K/uL Eos # (Auto) 0.0 (0.0-0.7) K/uL Baso # (Auto) 0.0 (0.0-0.1) K/uL Nucleated RBC % 0.0 /100WBC Nucleated RBCs # 0 K/uL Sodium 132 L (136-148) mmol/L Potassium 4.2 (3.5-5.1) mmol/L Chloride 99 (98-107) mmol/L Carbon Dioxide 21.8 (21.0-32.0) mmol/L BUN 19 H (7.0-18.0) mg/dL Creatinine 1.7 H (0.8-1.3) mg/dL Est Cr Clr Drug Dosing 51.89 mL/min Estimated GFR (MDRD) 42.4 ml/min Glucose 177 H (74-106) mg/dL POC Glucose 218 H (60-110) mg/dL Calcium 8.6 (8.5-10.1) mg/dL 09/02/18 Range/Units 06:23 WBC (4.0-11.0) K/uL RBC (4.50-5.90) M/uL Hgb (13.0-17.0) g/dL Hct (38.0-50.0) % MCV (80.0-98.0) fL MCH (27.0-32.0) pg MCHC (31.0-37.0) g/dL RDW Std Deviation (28.0-62.0) fl RDW Coeff of Jonathan (11.0-15.0) % Plt Count (150-400) K/uL MPV (7.40-12.00) fL Neut % (Auto) (48.0-80.0) % Lymph % (Auto) (16.0-40.0) % Dillon % (Auto) (0.0-15.0) % Eos % (Auto) (0.0-7.0) % Baso % (Auto) (0.0-1.5) % Neut # (Auto) (1.4-5.7) K/uL Lymph # (Auto) (0.6-2.4) K/uL Dillon # (Auto) (0.0-0.8) K/uL Eos # (Auto) (0.0-0.7) K/uL Baso # (Auto) (0.0-0.1) K/uL Nucleated RBC % /100WBC Nucleated RBCs # K/uL Sodium (136-148) mmol/L Potassium (3.5-5.1) mmol/L Chloride (98-107) mmol/L Carbon Dioxide (21.0-32.0) mmol/L BUN (7.0-18.0) mg/dL Creatinine (0.8-1.3) mg/dL Est Cr Clr Drug Dosing mL/min Estimated GFR (MDRD) ml/min Glucose (74-106) mg/dL POC Glucose 185 H (60-110) mg/dL Calcium (8.5-10.1) mg/dL Kobi Results Last 24 Hours: Microbiology 08/30/18 10:22 Aerobic Blood Culture - Preliminary Blood - Venous - Lab Draw NO GROWTH AFTER 2 DAYS Anaerobic Blood Culture - Preliminary 08/30/18 10:10 Aerobic Blood Culture - Preliminary Blood - Venous NO GROWTH AFTER 2 DAYS Anaerobic Blood Culture - Preliminary 08/30/18 13:10 Urine Culture - Final Urine, Bladder Enterobacter Aerogenes Med Orders - Current: Current Medications Acetaminophen (Tylenol) 650 mg PO Q4H PRN PRN Reason: Pain/Fever Last Admin: 09/02/18 03:59 Dose: 650 mg Bupropion HCl (Wellbutrin Sr) 300 mg PO DAILY [facility] Last Admin: 09/01/18 09:53 Dose: 300 mg Sodium Chloride (Normal Saline) 1,000 mls @ 125 mls/hr IV ASDIRECTED [facility] Last Admin: 09/02/18 01:33 Dose: 125 mls/hr Levofloxacin/Dextrose 750 mg/ (Premix) 150 mls @ 100 mls/hr IV Q48H [facility] Last Admin: 09/01/18 09:48 Dose: 100 mls/hr Insulin Aspart (Novolog) 0 unit SUBCUT TIDAC [facility]; Protocol Last Admin: 09/02/18 07:31 Dose: 2 units Insulin Glargine (Lantus Solostar) 20 units SUBCUT BEDTIME [facility] Last Admin: 09/01/18 21:42 Dose: 20 units Multivitamins/Minerals/Vitamin C (Tab-A-Zaheer) 1 tab PO DAILY [facility] Last Admin: 09/01/18 10:06 Dose: 1 tab Ondansetron HCl (Zofran) 4 mg IVPUSH Q4H PRN PRN Reason: Nausea/Vomiting Rosuvastatin Calcium (Crestor) 20 mg PO DAILY [facility] Last Admin: 09/01/18 09:52 Dose: 20 mg Sertraline HCl (Zoloft) 100 mg PO BID [facility] Last Admin: 09/01/18 21:44 Dose: 100 mg Discontinued Medications Sodium Chloride (Normal Saline) 1,000 mls @ 999 mls/hr IV .BOLUS ONE Stop: 08/30/18 10:40 Last Admin: 08/30/18 10:33 Dose: 999 mls/hr Ceftriaxone Sodium/Dextrose 1 (gm/ Premix) 50 mls @ 100 mls/hr IV Q24H [facility] Last Admin: 08/31/18 08:53 Dose: 100 mls/hr - Exam Quality Assessment: No: Supplemental Oxygen General: Alert, Oriented, Cooperative HEENT: Pupils Equal, Pupils Reactive, EOMI, Mucous Membr. Moist/[place] Neck: Supple, Trachea Midline Lungs: Clear to Auscultation, Normal Respiratory Effort Cardiovascular: Regular Rate, Regular Rhythm GI/Abdominal Exam: Normal Bowel Sounds, Soft, Non-Tender, No Distention Extremities: No Pedal Edema Skin: Warm, Dry Neurological: No New Focal Deficit Psy/Mental Status: Alert, Normal Affect, Normal Mood - Problem List & Annotations (1) Sepsis due to gram-negative UTI SNOMED Code(s): 282088236 Code(s): A41.50 - GRAM-NEGATIVE SEPSIS, UNSPECIFIED; N39.0 - URINARY TRACT INFECTION, SITE NOT SPECIFIED Status: Acute Current Visit: Yes (2) Gram-negative bacteremia SNOMED Code(s): 699574277254 Code(s): R78.81 - BACTEREMIA Status: Acute Current Visit: Yes (3) MARCUS (acute kidney injury) SNOMED Code(s): 46492028 Code(s): N17.9 - ACUTE KIDNEY FAILURE, UNSPECIFIED Status: Acute Current Visit: Yes (4) Uncontrolled diabetes mellitus SNOMED Code(s): 63156707, 270512959 Code(s): E11.65 - TYPE 2 DIABETES MELLITUS WITH HYPERGLYCEMIA Status: Acute Current Visit: Yes (5) Infection due to Enterobacter aerogenes SNOMED Code(s): 723159293, 838337303 Code(s): A49.8 - OTHER BACTERIAL INFECTIONS OF UNSPECIFIED SITE Status: Acute Current Visit: Yes - Problem List Review Problem List Initiated/Reviewed/Updated: Yes - My Orders Last 24 Hours: My Active Orders 09/01/18 09:00 Levofloxacin/Dextrose 5%-Water [Levaquin in D5W 750 MG/150 ML] 750 mg Premix Bag 1 bag IV Q48H 09/01/18 09:14 CULTURE BLOOD [BC] Routine 09/01/18 09:15 Rosuvastatin [Crestor] 20 mg PO DAILY Sertraline [Zoloft] 100 mg PO BID buPROPion [Wellbutrin SR] 300 mg PO DAILY 09/01/18 09:24 CULTURE BLOOD [BC] Stat 09/01/18 09:39 Blood Culture x2 Reflex Set [OM.PC] Stat 09/01/18 10:00 Multivitamins [Tab-A-Zaheer] 1 tab PO DAILY - Plan Plan:: 1. Sepsis secondary to UTI with gram negative bacteremia- BC growing gram negative rods, full results pending. Repeat cultures to hopefully show he has cleared the infection are pending. Urine culture growing Enterobacter aerogenes. Continue Levaquin renally dosed every 48 hours. Continue IVF. 2. MARCUS- improving, Cr down from 1.8 to 1.7- continue IVF 3. Uncontrolled DMII with hyperglycemia- continue on Lantus 20 at bedtime and sliding scale with meals. 4. Chronic conditions- depression and hyperlipidemia- continue home meds <Ruperto Larson - Last Filed: 09/02/18 09:14> - General Info Subjective Update: I have seen and examined the patient independently of medical claims examiner, Demetria Vásquez MD. I have discussed the case with her. I have reviewed and agree with the assessment and plan of care for the patient as outlined by her. Please see orders. Still febrile overnight. Awaiting C&S for blood cultures. - Patient Data Vitals - Most Recent: Last Vital Signs Temp 37.1 C 09/02/18 08:59 Pulse 64 09/02/18 08:59 Resp 13 09/02/18 08:59 BP 112/64 09/02/18 08:59 Pulse Ox 95 09/02/18 08:59 I&O - Last 24 Hours: Intake & Output 09/01/18 09/02/18 09/02/18 22:59 06:59 14:59 Intake Total 3375 1999 Output Total 1999 2099 Balance 1375 -100 Lab Results Last 24 Hours: Laboratory Results - last 24 hr 09/01/18 09/01/18 09/01/18 Range/Units 06:29 11:23 16:06 WBC (4.0-11.0) K/uL RBC (4.50-5.90) M/uL Hgb (13.0-17.0) g/dL Hct (38.0-50.0) % MCV (80.0-98.0) fL MCH (27.0-32.0) pg MCHC (31.0-37.0) g/dL RDW Std Deviation (28.0-62.0) fl RDW Coeff of Jonathan (11.0-15.0) % Plt Count (150-400) K/uL MPV (7.40-12.00) fL Neut % (Auto) (48.0-80.0) % Lymph % (Auto) (16.0-40.0) % Dillon % (Auto) (0.0-15.0) % Eos % (Auto) (0.0-7.0) % Baso % (Auto) (0.0-1.5) % Neut # (Auto) (1.4-5.7) K/uL Lymph # (Auto) (0.6-2.4) K/uL Dillon # (Auto) (0.0-0.8) K/uL Eos # (Auto) (0.0-0.7) K/uL Baso # (Auto) (0.0-0.1) K/uL Nucleated RBC % /100WBC Nucleated RBCs # K/uL Sodium (136-148) mmol/L Potassium (3.5-5.1) mmol/L Chloride (98-107) mmol/L Carbon Dioxide (21.0-32.0) mmol/L BUN (7.0-18.0) mg/dL Creatinine (0.8-1.3) mg/dL Est Cr Clr Drug Dosing mL/min Estimated GFR (MDRD) ml/min Glucose (74-106) mg/dL POC Glucose 265 H 281 H 258 H (60-110) mg/dL Calcium (8.5-10.1) mg/dL 09/01/18 09/02/18 09/02/18 Range/Units 21:11 05:13 05:13 WBC 14.77 H (4.0-11.0) K/uL RBC 3.63 L (4.50-5.90) M/uL Hgb 10.6 L (13.0-17.0) g/dL Hct 29.9 L (38.0-50.0) % MCV 82.4 (80.0-98.0) fL MCH 29.2 (27.0-32.0) pg MCHC 35.5 (31.0-37.0) g/dL RDW Std Deviation 36.0 (28.0-62.0) fl RDW Coeff of Jonathan 12 (11.0-15.0) % Plt Count 464 H (150-400) K/uL MPV 8.90 (7.40-12.00) fL Neut % (Auto) 87.1 H (48.0-80.0) % Lymph % (Auto) 7.0 L (16.0-40.0) % Dillon % (Auto) 5.6 (0.0-15.0) % Eos % (Auto) 0.2 (0.0-7.0) % Baso % (Auto) 0.1 (0.0-1.5) % Neut # (Auto) 12.9 H (1.4-5.7) K/uL Lymph # (Auto) 1.0 (0.6-2.4) K/uL Dillon # (Auto) 0.8 (0.0-0.8) K/uL Eos # (Auto) 0.0 (0.0-0.7) K/uL Baso # (Auto) 0.0 (0.0-0.1) K/uL Nucleated RBC % 0.0 /100WBC Nucleated RBCs # 0 K/uL Sodium 132 L (136-148) mmol/L Potassium 4.2 (3.5-5.1) mmol/L Chloride 99 (98-107) mmol/L Carbon Dioxide 21.8 (21.0-32.0) mmol/L BUN 19 H (7.0-18.0) mg/dL Creatinine 1.7 H (0.8-1.3) mg/dL Est Cr Clr Drug Dosing 51.89 mL/min Estimated GFR (MDRD) 42.4 ml/min Glucose 177 H (74-106) mg/dL POC Glucose 218 H (60-110) mg/dL Calcium 8.6 (8.5-10.1) mg/dL 09/02/18 Range/Units 06:23 WBC (4.0-11.0) K/uL RBC (4.50-5.90) M/uL Hgb (13.0-17.0) g/dL Hct (38.0-50.0) % MCV (80.0-98.0) fL MCH (27.0-32.0) pg MCHC (31.0-37.0) g/dL RDW Std Deviation (28.0-62.0) fl RDW Coeff of Jonathan (11.0-15.0) % Plt Count (150-400) K/uL MPV (7.40-12.00) fL Neut % (Auto) (48.0-80.0) % Lymph % (Auto) (16.0-40.0) % Dillon % (Auto) (0.0-15.0) % Eos % (Auto) (0.0-7.0) % Baso % (Auto) (0.0-1.5) % Neut # (Auto) (1.4-5.7) K/uL Lymph # (Auto) (0.6-2.4) K/uL Dillon # (Auto) (0.0-0.8) K/uL Eos # (Auto) (0.0-0.7) K/uL Baso # (Auto) (0.0-0.1) K/uL Nucleated RBC % /100WBC Nucleated RBCs # K/uL Sodium (136-148) mmol/L Potassium (3.5-5.1) mmol/L Chloride (98-107) mmol/L Carbon Dioxide (21.0-32.0) mmol/L BUN (7.0-18.0) mg/dL Creatinine (0.8-1.3) mg/dL Est Cr Clr Drug Dosing mL/min Estimated GFR (MDRD) ml/min Glucose (74-106) mg/dL POC Glucose 185 H (60-110) mg/dL Calcium (8.5-10.1) mg/dL Kobi Results Last 24 Hours: Microbiology 08/30/18 10:22 Aerobic Blood Culture - Preliminary Blood - Venous - Lab Draw NO GROWTH AFTER 2 DAYS Anaerobic Blood Culture - Preliminary 08/30/18 10:10 Aerobic Blood Culture - Preliminary Blood - Venous NO GROWTH AFTER 2 DAYS Anaerobic Blood Culture - Preliminary 08/30/18 13:10 Urine Culture - Final Urine, Bladder Enterobacter Aerogenes Med Orders - Current: Current Medications Acetaminophen (Tylenol) 650 mg PO Q4H PRN PRN Reason: Pain/Fever Last Admin: 09/02/18 03:59 Dose: 650 mg Bupropion HCl (Wellbutrin Sr) 300 mg PO DAILY [facility] Last Admin: 09/01/18 09:53 Dose: 300 mg Sodium Chloride (Normal Saline) 1,000 mls @ 125 mls/hr IV ASDIRECTED [facility] Last Admin: 09/02/18 01:33 Dose: 125 mls/hr Levofloxacin/Dextrose 750 mg/ (Premix) 150 mls @ 100 mls/hr IV Q48H [facility] Last Admin: 09/01/18 09:48 Dose: 100 mls/hr Insulin Aspart (Novolog) 0 unit SUBCUT TIDAC [facility]; Protocol Last Admin: 09/02/18 07:31 Dose: 2 units Insulin Glargine (Lantus Solostar) 20 units SUBCUT BEDTIME [facility] Last Admin: 09/01/18 21:42 Dose: 20 units Multivitamins/Minerals/Vitamin C (Tab-A-Zaheer) 1 tab PO DAILY [facility] Last Admin: 09/01/18 10:06 Dose: 1 tab Ondansetron HCl (Zofran) 4 mg IVPUSH Q4H PRN PRN Reason: Nausea/Vomiting Rosuvastatin Calcium (Crestor) 20 mg PO DAILY [facility] Last Admin: 09/01/18 09:52 Dose: 20 mg Sertraline HCl (Zoloft) 100 mg PO BID [facility] Last Admin: 09/01/18 21:44 Dose: 100 mg Discontinued Medications Sodium Chloride (Normal Saline) 1,000 mls @ 999 mls/hr IV .BOLUS ONE Stop: 08/30/18 10:40 Last Admin: 08/30/18 10:33 Dose: 999 mls/hr Ceftriaxone Sodium/Dextrose 1 (gm/ Premix) 50 mls @ 100 mls/hr IV Q24H [facility] Last Admin: 08/31/18 08:53 Dose: 100 mls/hr
[2018-09-02] MEDS: Rosuvastatin 10 MG Tab PO SCH (09:52)
[2018-09-02] MEDS: Multivitamin Tab PO SCH (09:53)
[2018-09-02] MEDS: buPROPion 150 MG Tab.SR PO SCH (09:54)
[2018-09-02] MEDS: Sertraline 100 MG Tab PO SCH ×2 (09:54→20:10)
[2018-09-02] MEDS ORDERED: Cholecalciferol (Vitamin D3) [Vitamin D3] 50,000 UNIT PO SCH (10:15)
[2018-09-02] MEDS: Insulin Glargine,Human Rec. Analog 100 Units/ML 3 ML Pen SUBCUT SCH (20:10)
[2018-09-03] MEDS: Sodium Chloride 0.9% 1,000 ML IV SCH ×3 (00:51→17:19)
[2018-09-03] MEDS: Insulin Aspart 100 Units/ML 3 ML Pen SUBCUT SCH ×4 (07:47→16:55)
--- NOTE | 2018-09-03 09:19 | PCM.PN ---
<Demetria Vásquez - Last Filed: 09/03/18 09:14> - General Info Date of Service: 09/03/18 Subjective Update: Patient reports he feels better compared to yesterday. He did spike a temp of 102.4 F yesterday. Blood cultures are back growing Enterobacter, same as urine culture, repeat blood cultures have been negative so far. Patient's appettie was better today. He denies chest pain, shortness of breath, or abdominal pain. - Review of Systems General: Reports: Fever HEENT: Reports: No Symptoms Pulmonary: Reports: No Symptoms Cardiovascular: Reports: No Symptoms Gastrointestinal: Reports: No Symptoms Genitourinary: Reports: No Symptoms Musculoskeletal: Reports: No Symptoms Skin: Reports: No Symptoms Neurological: Reports: No Symptoms Psychiatric: Reports: No Symptoms - Patient Data Vitals - Most Recent: Last Vital Signs Temp 99 F 09/03/18 07:51 Pulse 74 09/03/18 07:51 Resp 16 09/03/18 04:00 BP 96/61 09/03/18 07:51 Pulse Ox 96 09/03/18 04:00 Weight - Most Recent: 86.581 kg I&O - Last 24 Hours: Intake & Output 09/02/18 09/03/18 09/03/18 22:59 06:59 14:59 Intake Total 3501 2205 Output Total 1550 1500 Balance 1951 705 Lab Results Last 24 Hours: Laboratory Results - last 24 hr 09/02/18 09/02/18 09/02/18 Range/Units 11:48 15:39 20:16 WBC (4.0-11.0) K/uL RBC (4.50-5.90) M/uL Hgb (13.0-17.0) g/dL Hct (38.0-50.0) % MCV (80.0-98.0) fL MCH (27.0-32.0) pg MCHC (31.0-37.0) g/dL RDW Std Deviation (28.0-62.0) fl RDW Coeff of Jonathan (11.0-15.0) % Plt Count (150-400) K/uL MPV (7.40-12.00) fL Neut % (Auto) (48.0-80.0) % Lymph % (Auto) (16.0-40.0) % [place] % (Auto) (0.0-15.0) % Eos % (Auto) (0.0-7.0) % Baso % (Auto) (0.0-1.5) % Neut # (Auto) (1.4-5.7) K/uL Lymph # (Auto) (0.6-2.4) K/uL [place] # (Auto) (0.0-0.8) K/uL Eos # (Auto) (0.0-0.7) K/uL Baso # (Auto) (0.0-0.1) K/uL Nucleated RBC % /100WBC Nucleated RBCs # K/uL Sodium (136-148) mmol/L Potassium (3.5-5.1) mmol/L Chloride (98-107) mmol/L Carbon Dioxide (21.0-32.0) mmol/L BUN (7.0-18.0) mg/dL Creatinine (0.8-1.3) mg/dL Est Cr Clr Drug Dosing mL/min Estimated GFR (MDRD) ml/min Glucose (74-106) mg/dL POC Glucose 209 H 218 H 223 H (60-110) mg/dL Calcium (8.5-10.1) mg/dL 09/03/18 09/03/18 Range/Units 06:24 06:24 WBC 14.23 H (4.0-11.0) K/uL RBC 3.71 L (4.50-5.90) M/uL Hgb 10.7 L (13.0-17.0) g/dL Hct 30.7 L (38.0-50.0) % MCV 82.7 (80.0-98.0) fL MCH 28.8 (27.0-32.0) pg MCHC 34.9 (31.0-37.0) g/dL RDW Std Deviation 36.3 (28.0-62.0) fl RDW Coeff of Jonathan 12 (11.0-15.0) % Plt Count 461 H (150-400) K/uL MPV 9.10 (7.40-12.00) fL Neut % (Auto) 81.7 H (48.0-80.0) % Lymph % (Auto) 12.4 L (16.0-40.0) % [place] % (Auto) 5.6 (0.0-15.0) % Eos % (Auto) 0.2 (0.0-7.0) % Baso % (Auto) 0.1 (0.0-1.5) % Neut # (Auto) 11.6 H (1.4-5.7) K/uL Lymph # (Auto) 1.8 (0.6-2.4) K/uL [place] # (Auto) 0.8 (0.0-0.8) K/uL Eos # (Auto) 0.0 (0.0-0.7) K/uL Baso # (Auto) 0.0 (0.0-0.1) K/uL Nucleated RBC % 0.0 /100WBC Nucleated RBCs # 0 K/uL Sodium 134 L (136-148) mmol/L Potassium 4.5 (3.5-5.1) mmol/L Chloride 100 (98-107) mmol/L Carbon Dioxide 22.3 (21.0-32.0) mmol/L BUN 18 (7.0-18.0) mg/dL Creatinine 1.6 H (0.8-1.3) mg/dL Est Cr Clr Drug Dosing 55.27 mL/min Estimated GFR (MDRD) 45.4 ml/min Glucose 220 H (74-106) mg/dL POC Glucose (60-110) mg/dL Calcium 8.8 (8.5-10.1) mg/dL Kobi Results Last 24 Hours: Microbiology 08/30/18 10:22 Aerobic Blood Culture - Preliminary Blood - Venous - Lab Draw NO GROWTH AFTER 3 DAYS Anaerobic Blood Culture - Final 08/30/18 10:10 Aerobic Blood Culture - Preliminary Blood - Venous NO GROWTH AFTER 3 DAYS Anaerobic Blood Culture - Final Enterobacter Aerogenes 09/01/18 09:24 Aerobic Blood Culture - Preliminary Blood - Venous NO GROWTH AFTER 1 DAY Anaerobic Blood Culture - Preliminary NO GROWTH AFTER 1 DAY 09/01/18 09:14 Aerobic Blood Culture - Preliminary Blood NO GROWTH AFTER 1 DAY Anaerobic Blood Culture - Preliminary NO GROWTH AFTER 1 DAY Med Orders - Current: Current Medications Acetaminophen (Tylenol) 650 mg PO Q4H PRN PRN Reason: Pain/Fever Last Admin: 09/02/18 14:54 Dose: 650 mg Bupropion HCl (Wellbutrin Sr) 300 mg PO DAILY [facility] Last Admin: 09/02/18 09:54 Dose: 300 mg Sodium Chloride (Normal Saline) 1,000 mls @ 125 mls/hr IV ASDIRECTED [facility] Last Admin: 09/03/18 08:30 Dose: 125 mls/hr Meropenem 1 gm/ Sodium (Chloride) 100 mls @ 200 mls/hr IV Q8H [facility] Insulin Aspart (Novolog) 0 unit SUBCUT TIDAC [facility]; Protocol Last Admin: 09/03/18 07:47 Dose: 4 units Insulin Glargine (Lantus Solostar) 20 units SUBCUT BEDTIME [facility] Last Admin: 09/02/18 20:10 Dose: 20 units Multivitamins/Minerals/Vitamin C (Tab-A-Zaheer) 1 tab PO DAILY [facility] Last Admin: 09/02/18 09:53 Dose: 1 tab Ondansetron HCl (Zofran) 4 mg IVPUSH Q4H PRN PRN Reason: Nausea/Vomiting Cholecalciferol ( Vitamin D3) [Vitamin D3] 50,000 Unit 1 each PO Q7D [facility] Last Admin: 09/02/18 11:07 Dose: Not Given Rosuvastatin Calcium (Crestor) 20 mg PO DAILY [facility] Last Admin: 09/02/18 09:52 Dose: 20 mg Sertraline HCl (Zoloft) 100 mg PO BID [facility] Last Admin: 09/02/18 20:10 Dose: 100 mg Discontinued Medications Sodium Chloride (Normal Saline) 1,000 mls @ 999 mls/hr IV .BOLUS ONE Stop: 08/30/18 10:40 Last Admin: 08/30/18 10:33 Dose: 999 mls/hr Ceftriaxone Sodium/Dextrose 1 (gm/ Premix) 50 mls @ 100 mls/hr IV Q24H [facility] Last Admin: 08/31/18 08:53 Dose: 100 mls/hr Levofloxacin/Dextrose 750 mg/ (Premix) 150 mls @ 100 mls/hr IV Q48H [facility] Last Admin: 09/01/18 09:48 Dose: 100 mls/hr - Exam General: Alert, Oriented, Cooperative HEENT: Pupils Equal, Pupils Reactive, EOMI, Mucous Membr. Moist/[place] Neck: Supple Lungs: Clear to Auscultation, Normal Respiratory Effort Cardiovascular: Regular Rate, Regular Rhythm GI/Abdominal Exam: Normal Bowel Sounds, Soft, Non-Tender, No Distention Extremities: No Pedal Edema Skin: Warm, Dry, Intact Neurological: No New Focal Deficit Psy/Mental Status: Alert, Normal Affect, Normal Mood - Problem List & Annotations (1) Sepsis due to gram-negative UTI SNOMED Code(s): 275417526 Code(s): A41.50 - GRAM-NEGATIVE SEPSIS, UNSPECIFIED; N39.0 - URINARY TRACT INFECTION, SITE NOT SPECIFIED Status: Acute Current Visit: Yes (2) Gram-negative bacteremia SNOMED Code(s): 047830825019 Code(s): R78.81 - BACTEREMIA Status: Acute Current Visit: Yes (3) MARCUS (acute kidney injury) SNOMED Code(s): 36659643 Code(s): N17.9 - ACUTE KIDNEY FAILURE, UNSPECIFIED Status: Acute Current Visit: Yes (4) Uncontrolled diabetes mellitus SNOMED Code(s): 18266148, 623172094 Code(s): E11.65 - TYPE 2 DIABETES MELLITUS WITH HYPERGLYCEMIA Status: Acute Current Visit: Yes (5) Infection due to Enterobacter aerogenes SNOMED Code(s): 014550481, 852456117 Code(s): A49.8 - OTHER BACTERIAL INFECTIONS OF UNSPECIFIED SITE Status: Acute Current Visit: Yes - Problem List Review Problem List Initiated/Reviewed/Updated: Yes - My Orders Last 24 Hours: My Active Orders 09/02/18 10:15 Patient's Own Medication [Ptom] 1 each PO Q7D 09/03/18 09:15 Meropenem [Merrem] 1 gm Sodium Chloride 0.9% [Normal Saline] 100 ml IV Q8H - Plan Plan:: 1. Sepsis secondary to UTI with gram negative bacteremia- urine and blood cultures growing Enterobacter aerogenes. Repeat blood cultures have no growth right now. As his WBC is not improving and he is still spiking fevers we will switch antibiotics from Levquin to Meropenem. Continue IVF. 2. MARCUS- improving, Cr down from 1.7 to 1.6- continue IVF 3. Uncontrolled DMII with hyperglycemia- continue on Lantus 20 at bedtime and sliding scale with meals. 4. Chronic conditions- depression and hyperlipidemia- continue home meds <Ruperto Larson - Last Filed: 09/03/18 15:58> - General Info Subjective Update: I have seen and examined the patient independently of medical editor, Demetria Vásquez MD. I have discussed the case with her. I have reviewed and agree with the assessment and plan of care for the patient as outlined by her. Please see orders. Discharge after afebrile for 24 hours. - Patient Data Vitals - Most Recent: Last Vital Signs Temp 36.1 C 09/03/18 12:00 Pulse 68 09/03/18 12:00 Resp 20 09/03/18 12:00 BP 100/58 L 09/03/18 12:00 Pulse Ox 97 09/03/18 12:00 I&O - Last 24 Hours: Intake & Output 09/03/18 09/03/18 09/03/18 06:59 14:59 22:59 Intake Total 2205 1200 Output Total 1500 Balance 705 1200 Lab Results Last 24 Hours: Laboratory Results - last 24 hr 09/02/18 09/03/18 09/03/18 Range/Units 20:16 06:23 06:24 WBC 14.23 H (4.0-11.0) K/uL RBC 3.71 L (4.50-5.90) M/uL Hgb 10.7 L (13.0-17.0) g/dL Hct 30.7 L (38.0-50.0) % MCV 82.7 (80.0-98.0) fL MCH 28.8 (27.0-32.0) pg MCHC 34.9 (31.0-37.0) g/dL RDW Std Deviation 36.3 (28.0-62.0) fl RDW Coeff of Jonathan 12 (11.0-15.0) % Plt Count 461 H (150-400) K/uL MPV 9.10 (7.40-12.00) fL Neut % (Auto) 81.7 H (48.0-80.0) % Lymph % (Auto) 12.4 L (16.0-40.0) % [place] % (Auto) 5.6 (0.0-15.0) % Eos % (Auto) 0.2 (0.0-7.0) % Baso % (Auto) 0.1 (0.0-1.5) % Neut # (Auto) 11.6 H (1.4-5.7) K/uL Lymph # (Auto) 1.8 (0.6-2.4) K/uL [place] # (Auto) 0.8 (0.0-0.8) K/uL Eos # (Auto) 0.0 (0.0-0.7) K/uL Baso # (Auto) 0.0 (0.0-0.1) K/uL Nucleated RBC % 0.0 /100WBC Nucleated RBCs # 0 K/uL Sodium (136-148) mmol/L Potassium (3.5-5.1) mmol/L Chloride (98-107) mmol/L Carbon Dioxide (21.0-32.0) mmol/L BUN (7.0-18.0) mg/dL Creatinine (0.8-1.3) mg/dL Est Cr Clr Drug Dosing mL/min Estimated GFR (MDRD) ml/min Glucose (74-106) mg/dL POC Glucose 223 H 206 H (60-110) mg/dL Calcium (8.5-10.1) mg/dL 09/03/18 09/03/18 Range/Units 06:24 11:07 WBC (4.0-11.0) K/uL RBC (4.50-5.90) M/uL Hgb (13.0-17.0) g/dL Hct (38.0-50.0) % MCV (80.0-98.0) fL MCH (27.0-32.0) pg MCHC (31.0-37.0) g/dL RDW Std Deviation (28.0-62.0) fl RDW Coeff of Jonathan (11.0-15.0) % Plt Count (150-400) K/uL MPV (7.40-12.00) fL Neut % (Auto) (48.0-80.0) % Lymph % (Auto) (16.0-40.0) % [place] % (Auto) (0.0-15.0) % Eos % (Auto) (0.0-7.0) % Baso % (Auto) (0.0-1.5) % Neut # (Auto) (1.4-5.7) K/uL Lymph # (Auto) (0.6-2.4) K/uL [place] # (Auto) (0.0-0.8) K/uL Eos # (Auto) (0.0-0.7) K/uL Baso # (Auto) (0.0-0.1) K/uL Nucleated RBC % /100WBC Nucleated RBCs # K/uL Sodium 134 L (136-148) mmol/L Potassium 4.5 (3.5-5.1) mmol/L Chloride 100 (98-107) mmol/L Carbon Dioxide 22.3 (21.0-32.0) mmol/L BUN 18 (7.0-18.0) mg/dL Creatinine 1.6 H (0.8-1.3) mg/dL Est Cr Clr Drug Dosing 55.27 mL/min Estimated GFR (MDRD) 45.4 ml/min Glucose 220 H (74-106) mg/dL POC Glucose 278 H (60-110) mg/dL Calcium 8.8 (8.5-10.1) mg/dL Kobi Results Last 24 Hours: Microbiology 08/30/18 10:22 Aerobic Blood Culture - Preliminary Blood - Venous - Lab Draw NO GROWTH AFTER 4 DAYS Anaerobic Blood Culture - Final 08/30/18 10:10 Aerobic Blood Culture - Preliminary Blood - Venous NO GROWTH AFTER 4 DAYS Anaerobic Blood Culture - Final Enterobacter Aerogenes 09/01/18 09:24 Aerobic Blood Culture - Preliminary Blood - Venous NO GROWTH AFTER 2 DAYS Anaerobic Blood Culture - Preliminary NO GROWTH AFTER 2 DAYS 09/01/18 09:14 Aerobic Blood Culture - Preliminary Blood NO GROWTH AFTER 2 DAYS Anaerobic Blood Culture - Preliminary NO GROWTH AFTER 2 DAYS Med Orders - Current: Current Medications Acetaminophen (Tylenol) 650 mg PO Q4H PRN PRN Reason: Pain/Fever Last Admin: 09/02/18 14:54 Dose: 650 mg Bupropion HCl (Wellbutrin Sr) 300 mg PO DAILY [facility] Last Admin: 09/03/18 09:38 Dose: 300 mg Sodium Chloride (Normal Saline) 1,000 mls @ 125 mls/hr IV ASDIRECTED [facility] Last Admin: 09/03/18 08:30 Dose: 125 mls/hr Meropenem 1 gm/ Sodium (Chloride) 100 mls @ 200 mls/hr IV Q8HR [facility] Last Admin: 09/03/18 14:01 Dose: 200 mls/hr Insulin Aspart (Novolog) 0 unit SUBCUT TIDAC [facility]; Protocol Last Admin: 09/03/18 13:22 Dose: 6 units Insulin Glargine (Lantus Solostar) 20 units SUBCUT BEDTIME [facility] Last Admin: 09/02/18 20:10 Dose: 20 units Multivitamins/Minerals/Vitamin C (Tab-A-Zaheer) 1 tab PO DAILY [facility] Last Admin: 09/03/18 09:38 Dose: 1 tab Ondansetron HCl (Zofran) 4 mg IVPUSH Q4H PRN PRN Reason: Nausea/Vomiting Cholecalciferol ( Vitamin D3) [Vitamin D3] 50,000 Unit 1 each PO Q7D [facility] Last Admin: 09/02/18 11:07 Dose: Not Given Rosuvastatin Calcium (Crestor) 20 mg PO DAILY [facility] Last Admin: 09/03/18 09:39 Dose: 20 mg Sertraline HCl (Zoloft) 100 mg PO BID [facility] Last Admin: 09/03/18 09:38 Dose: 100 mg Discontinued Medications Sodium Chloride (Normal Saline) 1,000 mls @ 999 mls/hr IV .BOLUS ONE Stop: 08/30/18 10:40 Last Admin: 08/30/18 10:33 Dose: 999 mls/hr Ceftriaxone Sodium/Dextrose 1 (gm/ Premix) 50 mls @ 100 mls/hr IV Q24H [facility] Last Admin: 08/31/18 08:53 Dose: 100 mls/hr Levofloxacin/Dextrose 750 mg/ (Premix) 150 mls @ 100 mls/hr IV Q48H [facility] Last Admin: 09/03/18 12:11 Dose: Not Given
[2018-09-03] MEDS: Multivitamin Tab PO SCH (09:38)
[2018-09-03] MEDS: buPROPion 150 MG Tab.SR PO SCH (09:38)
[2018-09-03] MEDS: Sertraline 100 MG Tab PO SCH ×2 (09:38→21:22)
[2018-09-03] MEDS: Rosuvastatin 10 MG Tab PO SCH (09:39)
[2018-09-03] MEDS: Meropenem 1 GM in Sodium Chloride 0.9% 100 ML IV SCH ×3 (09:40→21:23)
[2018-09-03] MEDS: Levofloxacin/Dextrose 5%-Water 750 MG in Premix Bag 1 BAG IV SCH (12:11)
[2018-09-03] MEDS: Insulin Glargine,Human Rec. Analog 100 Units/ML 3 ML Pen SUBCUT SCH (21:22)
[2018-09-04] MEDS: Sodium Chloride 0.9% 1,000 ML IV SCH (03:21)
[2018-09-04] MEDS: Acetaminophen 325 MG Tab PO PRN (03:25)
[2018-09-04] MEDS: Meropenem 1 GM in Sodium Chloride 0.9% 100 ML IV SCH (06:28)
--- NOTE | 2018-09-04 07:28 | PCM.DCSUM1 ---
Discharge Summary - Hospital Course HPI Initial Comments: The patient was admitted secondary to severe urosepsis. Diagnosis: Stroke: No - Discharge Data Discharge Date: 09/04/18 Discharge Disposition: Home, Self-Care 01 Condition: Good - Patient Summary/Data Consults: Consultations 08/30/18 11:43 Consult to Diabetic Nurse Specialist [CONS] Routine Hospital Course: The patient's a 52-year-old gentleman who was a direct admit from clinic secondary to flulike symptoms. The patient had a fever at home 102F. The patient had a urinalysis which was positive for leukocyte esterase as well as + 4 bacteria and pyuria. The patient was admitted secondary to the sepsis associated with UTI. He was also noted to have diabetes mellitus type 2 which was also uncontrolled. The patient was aggressively fluid resuscitated and placed on broad-spectrum antibiotics Rocephin and Levaquin. Later the patient had been placed on meropenem 1 g every 8 hours. The patient tolerated these antibiotics well. Upon admission the patient's initial temperature was 37.8 Celsius and it had risen to a maximum of 39.1 Celsius. The patient was also on antipyretics. Urine cultures obtained also showed Enterobacter aerogenes sensitive to both cephalosporins and Levaquin. Blood cultures were also positive for the same organism. The patient was discharged on ciprofloxacin 500 mg by mouth twice a day and he is given 14 day supply. The patient continued to improve and he was discharged after being afebrile for 24 hours. The patient's white blood cell count had improved to 12.95 thousand. The patient had continued to improve through his hospitalization. He had remained pain-free. The patient was retained secondary to his daily fever spikes. By day of discharge the patient had been afebrile for at least 24 hours. The patient had been tolerating his diabetic diet. He is recommended continue with his current ADA diet. The patient is also to have activity as tolerated. He is to follow-up with his primary care physician. The patient has been hemodynamically stable and he has been discharged from hospitalization with the recommendations listed above. - Patient Instructions Diet: Heart Healthy Diet, Diabetic Diet Activity: As Tolerated - Discharge Plan *PRESCRIPTION DRUG MONITORING PROGRAM REVIEWED*: No *COPY OF PRESCRIPTION DRUG MONITORING REPORT IN PATIENT KELIN: No Prescriptions/Med Rec: Ciprofloxacin [Ciprofloxacin HCl] 500 mg PO BID #28 tab Home Medications: Home Meds Fenofibrate Nanocrystallized [Fenofibrate] 145 mg PO DAILY 09/03/15 [History] Insulin Aspart [Novolog Flexpen] 1 injection SUBCUT ASDIRECTED 09/03/15 [History ] Insulin Glarg,Human.Rec.Analog [LantUS Solostar] 50 units SUBCUT BID 09/03/15 [ History] Insulin Lispro [Humalog Kwikpen U-100] 20 - 25 units SUBCUT ASDIRECTED 09/03/15 [History] Krill/Om-3/DHA/EPA/Phospho/Ast [Krill Oil 1,000 mg Softgel] 1 tab PO DAILY 09/02 [History] Multivitamin [Multivitamins] 1 tab PO DAILY 09/03/15 [History] buPROPion HCl [Wellbutrin SR] 300 mg PO DAILY 09/03/15 [History] sitaGLIPtin Phos/Metformin HCl [Janumet 50-500 MG] 2 tab PO DAILY 09/03/15 [ History] Cholecalciferol (Vitamin D3) [Vitamin D3] 50,000 unit PO WEEKLY 08/30/18 [ History] Exenatide Microspheres [Bydureon Pen] 2 mg SQ WEEKLY 08/30/18 [History] Lisinopril 5 mg PO DAILY 08/30/18 [History] Rosuvastatin [Crestor] 20 mg PO DAILY 08/30/18 [History] Sertraline HCl 100 mg PO BID 08/30/18 [History] Sertraline HCl [Zoloft] 100 mg PO BID 08/30/18 [History] Ciprofloxacin [Ciprofloxacin HCl] 500 mg PO BID #28 tab 09/04/18 [Rx] Oxygen Therapy Mode: Room Air Patient Handouts: Urosepsis, You've Been Prescribed Antibiotics in the Hospital for Infection-CDC (09/29), Ciprofloxacin tablets, Bacteremia Referrals: Odalys Turner NP [Ordering Only Provider] - 09/09/18 10:45 am - Discharge Summary/Plan Comment DC Time >30 min.: Yes - General Info Date of Service: 09/04/18 Admission Dx/Problem (Free Text: Sepsis secondary to urinary source. Subjective Update: Doing much better. Patient feels he can go home. Functional Status: Reports: Pain Controlled - Review of Systems General: Reports: No Symptoms HEENT: Reports: No Symptoms Pulmonary: Reports: No Symptoms Cardiovascular: Reports: No Symptoms Gastrointestinal: Reports: No Symptoms Genitourinary: Reports: No Symptoms Musculoskeletal: Reports: No Symptoms Skin: Reports: No Symptoms Neurological: Reports: No Symptoms Psychiatric: Reports: No Symptoms - Patient Data Vitals - Most Recent: Last Vital Signs Temp 36.2 C 09/04/18 04:00 Pulse 83 09/04/18 04:00 Resp 18 09/04/18 04:00 BP 111/69 09/04/18 04:00 Pulse Ox 96 09/04/18 04:00 Weight - Most Recent: 86.581 kg I&O - Last 24 hours: Intake & Output 09/03/18 09/04/18 09/04/18 22:59 06:59 14:59 Intake Total 750 4312 Output Total 1750 1675 Balance -1000 2637 Lab Results - Last 24 hrs: Laboratory Results - last 24 hr 09/03/18 09/03/18 09/03/18 Range/Units 06:23 11:07 16:34 WBC (4.0-11.0) K/uL RBC (4.50-5.90) M/uL Hgb (13.0-17.0) g/dL Hct (38.0-50.0) % MCV (80.0-98.0) fL MCH (27.0-32.0) pg MCHC (31.0-37.0) g/dL RDW Std Deviation (28.0-62.0) fl RDW Coeff of Jonathan (11.0-15.0) % Plt Count (150-400) K/uL MPV (7.40-12.00) fL Neut % (Auto) (48.0-80.0) % Lymph % (Auto) (16.0-40.0) % [place] % (Auto) (0.0-15.0) % Eos % (Auto) (0.0-7.0) % Baso % (Auto) (0.0-1.5) % Neut # (Auto) (1.4-5.7) K/uL Lymph # (Auto) (0.6-2.4) K/uL [place] # (Auto) (0.0-0.8) K/uL Eos # (Auto) (0.0-0.7) K/uL Baso # (Auto) (0.0-0.1) K/uL Nucleated RBC % /100WBC Nucleated RBCs # K/uL Sodium (136-148) mmol/L Potassium (3.5-5.1) mmol/L Chloride (98-107) mmol/L Carbon Dioxide (21.0-32.0) mmol/L BUN (7.0-18.0) mg/dL Creatinine (0.8-1.3) mg/dL Est Cr Clr Drug Dosing mL/min Estimated GFR (MDRD) ml/min Glucose (74-106) mg/dL POC Glucose 206 H 278 H 312 H (60-110) mg/dL Calcium (8.5-10.1) mg/dL 09/03/18 09/04/18 09/04/18 Range/Units 19:57 06:30 06:50 WBC 12.95 H (4.0-11.0) K/uL RBC 3.51 L (4.50-5.90) M/uL Hgb 10.0 L (13.0-17.0) g/dL Hct 29.1 L (38.0-50.0) % MCV 82.9 (80.0-98.0) fL MCH 28.5 (27.0-32.0) pg MCHC 34.4 (31.0-37.0) g/dL RDW Std Deviation 36.7 (28.0-62.0) fl RDW Coeff of Jonathan 12 (11.0-15.0) % Plt Count 443 H (150-400) K/uL MPV 9.00 (7.40-12.00) fL Neut % (Auto) 76.4 (48.0-80.0) % Lymph % (Auto) 14.7 L (16.0-40.0) % [place] % (Auto) 8.3 (0.0-15.0) % Eos % (Auto) 0.5 (0.0-7.0) % Baso % (Auto) 0.1 (0.0-1.5) % Neut # (Auto) 9.9 H (1.4-5.7) K/uL Lymph # (Auto) 1.9 (0.6-2.4) K/uL [place] # (Auto) 1.1 H (0.0-0.8) K/uL Eos # (Auto) 0.1 (0.0-0.7) K/uL Baso # (Auto) 0.0 (0.0-0.1) K/uL Nucleated RBC % 0.0 /100WBC Nucleated RBCs # 0 K/uL Sodium (136-148) mmol/L Potassium (3.5-5.1) mmol/L Chloride (98-107) mmol/L Carbon Dioxide (21.0-32.0) mmol/L BUN (7.0-18.0) mg/dL Creatinine (0.8-1.3) mg/dL Est Cr Clr Drug Dosing mL/min Estimated GFR (MDRD) ml/min Glucose (74-106) mg/dL POC Glucose 243 H 176 H (60-110) mg/dL Calcium (8.5-10.1) mg/dL 09/04/18 Range/Units 06:50 WBC (4.0-11.0) K/uL RBC (4.50-5.90) M/uL Hgb (13.0-17.0) g/dL Hct (38.0-50.0) % MCV (80.0-98.0) fL MCH (27.0-32.0) pg MCHC (31.0-37.0) g/dL RDW Std Deviation (28.0-62.0) fl RDW Coeff of Jonathan (11.0-15.0) % Plt Count (150-400) K/uL MPV (7.40-12.00) fL Neut % (Auto) (48.0-80.0) % Lymph % (Auto) (16.0-40.0) % [place] % (Auto) (0.0-15.0) % Eos % (Auto) (0.0-7.0) % Baso % (Auto) (0.0-1.5) % Neut # (Auto) (1.4-5.7) K/uL Lymph # (Auto) (0.6-2.4) K/uL [place] # (Auto) (0.0-0.8) K/uL Eos # (Auto) (0.0-0.7) K/uL Baso # (Auto) (0.0-0.1) K/uL Nucleated RBC % /100WBC Nucleated RBCs # K/uL Sodium 135 L (136-148) mmol/L Potassium 4.4 (3.5-5.1) mmol/L Chloride 102 (98-107) mmol/L Carbon Dioxide 25.6 (21.0-32.0) mmol/L BUN 17 (7.0-18.0) mg/dL Creatinine 1.5 H (0.8-1.3) mg/dL Est Cr Clr Drug Dosing 58.95 mL/min Estimated GFR (MDRD) 49.0 ml/min Glucose 181 H (74-106) mg/dL POC Glucose (60-110) mg/dL Calcium 8.5 (8.5-10.1) mg/dL REG Results - Last 24 hrs: Microbiology 08/30/18 10:22 Aerobic Blood Culture - Preliminary Blood - Venous - Lab Draw NO GROWTH AFTER 4 DAYS Anaerobic Blood Culture - Final 08/30/18 10:10 Aerobic Blood Culture - Preliminary Blood - Venous NO GROWTH AFTER 4 DAYS Anaerobic Blood Culture - Final Enterobacter Aerogenes 09/01/18 09:24 Aerobic Blood Culture - Preliminary Blood - Venous NO GROWTH AFTER 2 DAYS Anaerobic Blood Culture - Preliminary NO GROWTH AFTER 2 DAYS 09/01/18 09:14 Aerobic Blood Culture - Preliminary Blood NO GROWTH AFTER 2 DAYS Anaerobic Blood Culture - Preliminary NO GROWTH AFTER 2 DAYS Med Orders - Current: Current Medications Acetaminophen (Tylenol) 650 mg PO Q4H PRN PRN Reason: Pain/Fever Last Admin: 09/04/18 03:25 Dose: 650 mg Bupropion HCl (Wellbutrin Sr) 300 mg PO DAILY [facility] Last Admin: 09/03/18 09:38 Dose: 300 mg Sodium Chloride (Normal Saline) 1,000 mls @ 125 mls/hr IV ASDIRECTED [facility] Last Admin: 09/04/18 03:21 Dose: 125 mls/hr Meropenem 1 gm/ Sodium (Chloride) 100 mls @ 200 mls/hr IV Q8HR [facility] Last Admin: 09/04/18 06:28 Dose: 200 mls/hr Insulin Aspart (Novolog) 0 unit SUBCUT TIDAC [facility]; Protocol Last Admin: 09/03/18 16:55 Dose: 8 units Insulin Glargine (Lantus Solostar) 20 units SUBCUT BEDTIME [facility] Last Admin: 09/03/18 21:22 Dose: 20 units Multivitamins/Minerals/Vitamin C (Tab-A-Zaheer) 1 tab PO DAILY [facility] Last Admin: 09/03/18 09:38 Dose: 1 tab Ondansetron HCl (Zofran) 4 mg IVPUSH Q4H PRN PRN Reason: Nausea/Vomiting Cholecalciferol ( Vitamin D3) [Vitamin D3] 50,000 Unit 1 each PO Q7D [facility] Last Admin: 09/02/18 11:07 Dose: Not Given Rosuvastatin Calcium (Crestor) 20 mg PO DAILY [facility] Last Admin: 09/03/18 09:39 Dose: 20 mg Sertraline HCl (Zoloft) 100 mg PO BID [facility] Last Admin: 09/03/18 21:22 Dose: 100 mg Discontinued Medications Sodium Chloride (Normal Saline) 1,000 mls @ 999 mls/hr IV .BOLUS ONE Stop: 08/30/18 10:40 Last Admin: 08/30/18 10:33 Dose: 999 mls/hr Ceftriaxone Sodium/Dextrose 1 (gm/ Premix) 50 mls @ 100 mls/hr IV Q24H [facility] Last Admin: 08/31/18 08:53 Dose: 100 mls/hr Levofloxacin/Dextrose 750 mg/ (Premix) 150 mls @ 100 mls/hr IV Q48H [facility] Last Admin: 09/03/18 12:11 Dose: Not Given - Exam Quality Assessment: Reports: Supplemental Oxygen General: Reports: Alert, Oriented, Cooperative, No Acute Distress HEENT: Reports: Pupils Equal, Pupils Reactive, EOMI Neck: Reports: Supple, Trachea Midline Lungs: Reports: Clear to Auscultation, Normal Respiratory Effort Cardiovascular: Reports: Regular Rate, Regular Rhythm GI/Abdominal Exam: Normal Bowel Sounds, Soft, Non-Tender, No Distention (Male) Exam: Deferred Rectal (Males) Exam: Deferred Back Exam: Reports: Normal Inspection, Full Range of Motion Extremities: Normal Inspection, Normal Range of Motion, Non-Tender, No Pedal Edema Skin: Reports: Warm, Dry, Intact Neurological: Reports: No New Focal Deficit, Normal Gait Psy/Mental Status: Reports: Alert, Normal Affect, Normal Mood
[2018-09-04] MEDS: Insulin Aspart 100 Units/ML 3 ML Pen SUBCUT SCH (07:42)
[2018-09-04 09:16] VITALS: BP 102/64
[2018-09-04] MEDS: Rosuvastatin 10 MG Tab PO SCH (09:35)
[2018-09-04] MEDS: Sertraline 100 MG Tab PO SCH (09:36)
[2018-09-04] MEDS: buPROPion 150 MG Tab.SR PO SCH (09:38)
[2018-09-04] MEDS: Multivitamin Tab PO SCH (09:38)
== END 2018-09-04 11:10 | disposition home or self-care (01) | DRG 872 ==
LOC: MW.MS 09:02 → OBSVTOIN 08-31 09:37 → MW.MS 08-31 13:51
PROVIDERS: ADMIT Internal Medicine; ATTEND Internal Medicine
DX: A41.59 Other Gram-negative sepsis (principal); N39.0 Urinary tract infection, site not specified; N17.9 Acute kidney failure, unspecified; E11.65 Type 2 diabetes mellitus with hyperglycemia; F32.9 Major depressive disorder, single episode, unspecified; E78.5 Hyperlipidemia, unspecified; G47.30 Sleep apnea, unspecified; F41.9 Anxiety disorder, unspecified; E78.00 Pure hypercholesterolemia, unspecified; E66.9 Obesity, unspecified; Z68.27 Body mass index [BMI] 27.0-27.9, adult; Z98.84 Bariatric surgery status; Z79.4 Long term (current) use of insulin; Z79.899 Other long term (current) drug therapy; Z87.891 Personal history of nicotine dependence
CPT/HCPCS: 36415; 71046; 71046-26; 80048; 80053; 82962; 83036; 83605; 85025; 87040; 87077; 87086; 87088; 87186; 87804; 96361; 96365; 96366; A9270-GY; G0378; J0696; J1815-GY; J1956; J2185; J7030; J7040

== ENCOUNTER 2023-07-15 07:20 | Emergency (ER) | payer BC ==
[2023-07-15 09:51] VITALS: BP 140/92; PULSE 63
== END 2023-07-15 08:30 | disposition home or self-care (01) ==
LOC: MW.ED 07:20
DX: Z91.198 Patient's noncompliance with other medical treatment and regimen for other reason (principal); E78.00 Pure hypercholesterolemia, unspecified; E66.9 Obesity, unspecified; E11.9 Type 2 diabetes mellitus without complications; F17.210 Nicotine dependence, cigarettes, uncomplicated; Z79.4 Long term (current) use of insulin; Z79.899 Other long term (current) drug therapy; Z68.28 Body mass index [BMI] 28.0-28.9, adult
CPT/HCPCS: 82947; 99282; 99283